=== PATIENT | female | born 1960 | race Caucasian/White ===

== ENCOUNTER 2025-07-05 00:21 | Inpatient (IN) | payer SELFPAY ==
[2025-07-05] VITALS (32 sets, daily range): BP systolic 113–174; BP diastolic 62–104; PULSE 93–110; TEMP 36.4–37.2; O2SAT 83–96; BMI 33.1; BMI 33.6
--- NOTE | 2025-07-05 00:31 | PC.NURSE ---
Pulse Ox. 87-88% on room air. Oxygen applied at 3 LPM/NC and pulse ox. up to 93%.
--- NOTE | 2025-07-05 00:36 | ECG_ITS ---
The [facility] Test Date: 2025-07-05 Pat Name: ALPHONSE TESFAYE Department: Room: - Gender: Female Web Project Manager: : 1960 Requested By: [id number] Order Number: [id number] Reading MD: RICHIE ELAINE M.D. Measurements Intervals [place] Rate: 101 P: 77 TX: 158 QRS: 88 QRSD: 88 T: 72 QT: 360 QTc: 418 Interpretive Statements 1120 Sinus tachycardia 2420 RSR (QR) in lead V1/V2, consistent with right ventricular conduction delay 0102 ARTIFACT PRESENT 9140 abnormal rhythm ECG Compared to ECG 09/29/2021 08:15:31 Right-axis deviation no longer present Electronically Signed On 07-05-2025 15:05:18 EST by RICHIE ELAINE M.D.
--- NOTE | 2025-07-05 01:23 | ED_ITS ---
HPI - SOB/Dyspnea General Chief Complaint: Shortness of Breath/Dyspnea Stated Complaint: sob Time Seen by Provider: 07/05/25 01:11 Source: patient Mode of arrival: walk-in History of Present Illness HPI Narrative: history of COPD. Presents complaining of feeling short of breath. Also has swelling of her lower extremities. Denies chest pain or fever. No nausea. Triage pulse ox 88% RA. ches Related Data Home Medications ?Medication ?Instructions ?Recorded ?Confirmed albuterol sulfate 2.5 mg/3 mL 2.5 mg inhalation Q4H IN N 07/05/25 07/05/25 (0.083 %) solution for nebulization shortness of breat h or wheezing albuterol sulfate 90 mcg/actuation 2 inh inhalation Q4 H PRN shortness 07/05/25 07/05/25 aerosol inhaler of breath or wheezing levothyroxine 200 mcg tablet 200 mcg PO DAILY 07/05/25 07/05/25 Allergies Allergy/AdvReac Type Severity Reaction Status Date / Time Iodinated Contrast Media Allergy Rash Verified 07/05/25 00:33 Review of Systems ROS Status of ROS 10 or more systems reviewed and unremark able except as noted in history and below [facility] Medical History (Updated 07/05/25 @ 05:34 by Roberto Carlos Arredondo MD) Thyroid activity decreased ?E03.9 - Hypothyroidism, unspecified (ICD-10) COPD (chronic obstructive pulmonary disease) ?J44.9 - Chronic obstructive pulmonary disease, unspecified (ICD-10) Social History Little interest or pleasure in doing things: not at all Feeling down, depressed, or hopeless: not at all Exam Constitutional Vital Signs, click to edit/add: Last Vital Signs Temp 98.0 F 07/05/25 00:28 Pulse 93 H 07/05/25 04:40 Resp 24 H 07/05/25 04:10 BP 137/96 H 07/05/25 03:12 Pulse Ox 92 L 07/05/25 04:40 O2 Del Method Nasal Cannula 07/05/25 04:40 O2 Flow Rate 2 07/05/25 04:40 Common normals: no apparent distress, average body habitus, oriented x3, no limitations, healthy appearing, alert and well nourished [facility] Common normals: normocephalic and head/scalp atraumatic Eye Common normals: PERRL and EOMs intact bilaterally Respiratory Common normals: normal respiratory effort, no retractions, no use of accessory muscles and clear to auscultation bilaterally Cardio Common normals: regular rate and regular rhythm GI Common normals: Normal to inspection, nondistended, normoactive bowel sounds present, soft to palpation and non-tender Extremity Other: 1+ tense edema lower ext Neuro Common normals: oriented x3, CN's II-XII intact bilaterally, moves all extremities and no focal motor deficits Psych Appearance: grossly normal Course Vital Signs Vital signs: Vital Signs Temperature 98.0 F 07/05/25 00:28 Pulse Rate 110 H 07/05/25 00:28 Respiratory Rate 24 H 07/05/25 00:28 Blood Pressure 174/84 H 07/05/25 00:28 Pulse Oximetry 88 L 07/05/25 00:28 Oxygen Delivery Method Room Air 07/05/25 00:28 Temperature 98.0 F 07/05/25 00:28 Pulse Rate 93 H 07/05/25 04:40 Respiratory Rate 24 H 07/05/25 04:10 Blood Pressure 137/96 H 07/05/25 03:12 Pulse Oximetry 92 L 07/05/25 04:40 Oxygen Delivery Method Nasal Cannula 07/05/25 04:40 Oxygen Delivery Flow Rate 2 07/05/25 04:40 MDM - SOB/Dyspnea MDM Narrative Medical decision making narrative: history of COPD presents complaining of shortness of breath. No fever. Arrives with RA pulse ox 88%. also complains of swelling of her lower extremities. No chest pain or fever. Exam with 1+ tense edema of her lower extremities. EKG sinus tachycardia. cxray per my review is neg. Serial troponin and BNP neg. Patient treated with solumedrol and duoneb. Her pulse ox 92-93% with 2L NC 02. When she falls asleep she desats to 87% despite wearing 02. labs also demonstra te iatrogenic hyper thyroidism . Discussed with the hospitalist and patient is accepted for admission Lab Data Labs: Lab Results 07/05/25 07/05/25 Range/Units 00:39 04:10 WBC 8.3 (4.0-11.0) 10^3/uL RBC 4.46 (4.20-5.40) 10^6/uL Hgb 12.0 (12.0-16.0) g/dL Hct 37.8 (36.0-48.0) % MCV 84.8 (81.0-99.0) fL MCH 26.9 (26.7-34.0) pg MCHC 31.7 (29.9-35.2) g/dL RDW 15.3 H (11.0-15.0) % Plt Count 295 (150-450) 10^3/uL MPV 10.5 (9.5-13.5) fL Neut % (Auto) 75.2 H (43.0-75.0) % Lymph % (Auto) 15.6 L (20.5-60.0) % [place] % (Auto) 8.3 (1.7-12.0) % Eos % (Auto) 0.5 L (0.9-7.0) % Baso % (Auto) 0.2 (0.2-2.0) % Neut # (Auto) 6.3 (1.4-6.5) 10^3/uL Lymph # (Auto) 1.3 (1.2-3.8) 10^3/uL [place] # (Auto) 0.7 (0.3-0.8) 10^3/uL Eos # (Auto) 0.0 (0.0-0.7) 10^3/uL Baso # (Auto) 0.0 (0.0-0.1) 10^3/uL Abs Immat Gran (auto) 0.02 (0.00-0.03) 10^3/uL Imm/Tot Granulo (auto) 0.2 (0.0-0.5) % Sodium 142 (136-145) mmol/L Potassium 4.2 (3.5-5.1) mmol/L Chloride 105 (98-107) mmol/L Carbon Dioxide 30.7 (21.0-32.0) mmol/L Anion Gap 10.5 BUN 15.0 (7.0-18.0) mg/dL Creatinine 0.63 (0.55-1.02) mg/dL Est GFR ( Amer) >60 (>=60 mL/min/1.73m^2) Est GFR (Non-Af Amer) >60 (>=60 mL/min/1.73m^2) BUN/Creatinine Ratio 23.8 Glucose 116 H (74-106) mg/dL Calcium 9.2 (8.5-10.1) mg/dL Total Bilirubin <0.1 L (0.2-1.0) mg/dL AST 29 (15-37) U/L ALT 50 (14-59) U/L Alkaline Phosphatase 77 (46-116) U/L Troponin I High Sens 21.4 24.1 (4.0-51.3) pg/mL NT-Pro-B Natriuret Pep 235.0 (<=900.0) pg/mL Total Protein 7.1 (6.4-8.2) g/dL Albumin 3.5 (3.4-5.0) g/dL Globulin 3.6 g/dL Albumin/Globulin Ratio 1.0 Free T4 1.84 H (0.76-1.46) ng/dL TSH & Free T4 Interp <0.007 L (0.358-3.740) uIU/mL Discharge Plan Discharge Chief Complaint: Shortness of Breath/Dyspnea Clinical Impression: Acute exacerbation of chronic obstructive pulmonary disease, Hypoxemia, Bilateral edema of lower extremity, Iatrogenic hyperthyroidism Patient Disposition: Admitted as Observation
--- OUTSIDE RECORDS SUMMARY | 2025-07-05 01:24 | XMS_ITS | Clinical Summary ---
Author Organization [facility] Healthcare Address [address] [place] [address] Care Team Providers Care Bath House Attendant Name Role Phone Unavailable Primary Care Provider Unavailabl e Medications MedicationSigDispense QuantityRefillsLast FilledStart DateEnd DateStatus Fexofenadine HCl (MAYNOR ALLERGY PO) AllegraActive amoxicillin (Amoxil) 875 MG tablet Indications:Dental abscess1 po bid until all taken. 20 tablet 3Active albuterol HFA 90 mcg/act inhaler Indications:Simple chronic bronchitis (HCC)Inhale 2 puffs every 4 (four) hours if needed for wheezing INHALE 2 PUFFS BY MOUTH EVERY 4 HOURS ASNEEDED FOR WHEEZING 18 g 5Active levothyroxine (Synthroid, Levoxyl) 200 MCG tablet Indications:Hypothyroidism (acquired)TAKE 1 TABLET BY MOUTH IN THE MORNING ON AN EMPTY STOMACH 120 tablet 5Active albuterol (2.5 MG/3ML) 0.083% nebulizer solution Indications:Simple chronic bronchitis (HCC)USE 1 VIAL IN NEBULIZER EVERY 4 HOURS NEEDED FOR SHORTNESS OF BREATH 450 mL 5Active albuterol (2.5 MG/3ML) 0.083% nebulizer solution Indications:Simple chronic bronchitis (HCC)USE 1 VIAL IN NEBULIZER EVERY 4 HOURS NEEDED FOR SHORTNESS OF BREATH 450 mL Discontinued Encounters DateTypeDepartmentCare EkwiTsbfobhhpou79/19/2025Telephone [facility] [address] [place] [address] Fam Sotomayor DO 06/10/2025Refill [facility] [address] [place] [address] Fam Sotomayor, DO Simple chronic bronchitis (HCC)2025Refill [facility] [address] [place] [id number] Fam Sotomayor, DO Simple chronic bronchitis (HCC)from Last 3 Months Social History Tobacco UseTypesPacks/DayYears UsedDateSmoking Tobacco: Never Assessed CommentsUnknownSex and Gender InformationValueDate RecordedSex Assigned at Not on fileLegal QqlSmhafm40/15/2023 6:44 PM EDTGender IdentityNot on fileSexual OrientationNot on file Last Filed Vital Signs Vital SignReadingTime TakenCommentsBlood Fyxxdkfu516/80009/01/2022 12:00 PM EST Pulse--Temperature--Respiratory Rate--Oxygen Saturation--Inhaled Oxygen Concentration--Fkygye03.6 kg (202 lb)09/01/2022 12:00 PM TWDRazdtq204.9 cm (5' 1 )09/01/2022 12:00 PM ESTBody Mass Index38.17009/01/2022 12:00 PM EST Plan of Treatment Not on file
--- NOTE | 2025-07-05 01:28 | XR_ITS ---
The [address] [address] Patient Name: ALPHONSE TESFAYE MRN: [facility]:[id number] date: 1960 Sex: F Assigned Patient Location: ER Current Patient Location: [place] Accession/Order Number: [id number] Exam Date: 07/05/2025 01:30 Report Date: 07/05/2025 08:20 At the request of: MILADY POLK MD Procedure: XR chest 1V PA CHEST: CLINICAL HISTORY: short of breath COMPARISON: 09/29/2021 Unremarkable cardiomediastinal silhouette. Lungs clear. No effusion or pneumothorax. XR/XR chest 1V IMPRESSION: NEGATIVE ACUTE PLEURAL-PARENCHYMAL DISEASE. Impression dictated by: Brandt Sandoval M.D. 07/05/2025 8:20 AM Dictation Location: [place] [address] Electronically authenticated by: [id number] Y Date: 07/05/2025 08:20
[2025-07-05 01:32] LABS: Hematocrit 37.8 % (36.0-48.0); Hemoglobin 12.0 g/dL (12.0-16.0); Immature Granulocytes Abs Auto 0.02 10^3/uL (0.00-0.03); Immature Granulocytes Pct Auto 0.2 % (0.0-0.5); Lymphocytes Absolute Auto 1.3 10^3/uL (1.2-3.8); Mean Corpuscular HGB Conc 31.7 g/dL (29.9-35.2); Mean Corpuscular Hemoglobin 26.9 pg (26.7-34.0); Mean Corpuscular Volume 84.8 fL (81.0-99.0); Platelet Count 295 10^3/uL (150-450); Red Blood Count 4.46 10^6/uL (4.20-5.40); White Blood Count 8.3 10^3/uL (4.0-11.0)
[2025-07-05] MEDS: METHYLPREDNISOLONE SOD SUCC PF 125 MG/2 ML VIAL IVP (01:37)
[2025-07-05] MEDS: IPRATROPIUM/ALBUTEROL SULFATE 3 ML AMPUL.NEB IH ×5 (01:46→20:32)
[2025-07-05 01:50] LABS: Alanine Aminotransferase 50 U/L (14-59); Albumin Globulin Ratio 1.0; Albumin Level 3.5 g/dL (3.4-5.0); Alkaline Phosphatase 77 U/L (46-116); Anion Gap 10.5; Aspartate Amino Transferase 29 U/L (15-37); Blood Urea Nitrogen 15.0 mg/dL (7.0-18.0); Calcium 9.2 mg/dL (8.5-10.1); Carbon Dioxide 30.7 mmol/L (21.0-32.0); Chloride 105 mmol/L (98-107); Estimated GFR (African America >60 (>=60 mL/min/1.73m^2); Estimated GFR (Non-African Ame >60 (>=60 mL/min/1.73m^2); Globulin 3.6 g/dL; Glucose 116 mg/dL (74-106); NT Pro B Type Natriuretic Pept 235.0 pg/mL (<=900.0); Potassium 4.2 mmol/L (3.5-5.1); Sodium 142 mmol/L (136-145); Total Protein 7.1 g/dL (6.4-8.2)
[2025-07-05 03:10] LABS: TSH W/ REFLEX FT4 <0.007 uIU/mL (0.358-3.740)
[2025-07-05 08:12] LABS: Magnesium 2.2 mg/dL (1.8-2.4)
[2025-07-05] MEDS: ENOXAPARIN SODIUM 40 MG/0.4 ML SYRINGE SUBQ (08:29)
[2025-07-05] MEDS: AMLODIPINE BESYLATE 5 MG TABLET PO (08:29)
[2025-07-05] MEDS: LEVOTHYROXINE SODIUM 100 MCG TABLET 200 MCG PO (10:18)
--- NOTE | 2025-07-05 10:19 | PM.HP ---
HPI H&P: HPI History of Present Illness Chief complaint: sob, EXACERBATION, COPD Narrative: Mrs. Garza is a 65-year-old female with a known diagnosis of COPD. She came in with a few days history of cough, wheezing and congestion. Moist cough, yellowish. No chest pain or palpitation. No fever or chills. Lower extremity swelling. Patient continues to smoke. She is down to 5 cigarettes a day. She is not on oxygen at home. Patient stated that she has oximetry at home. Saturation was dropping down to 88%. In the emergency room her oxygen saturation was 88% on presentation. Opioid HPI Opioid Management Most Recent Pain and Opioid Data: Last Pain Assessment Today, 09:51 Last ORT Total Score 1 Today, 06:55 Last ORT Risk Category Low Risk Today, 06:55 Review of Systems ROS Status of ROS 10 or more systems reviewed and unremarkable except as noted in history and below [facility] Medical History (Updated 07/05/25 @ 10:25 by Moses Rivera MD) Hx of thyroid cancer ?Z85.850 - Personal history of malignant neoplasm of thyroid (ICD-10) History of COPD ?Z87.09 - Personal history of other diseases of the respiratory system (ICD-10) Thyroid activity decreased ?E03.9 - Hypothyroidism, unspecified (ICD-10) COPD (chronic obstructive pulmonary disease) ?J44.9 - Chronic obstructive pulmonary disease, unspecified (ICD-10) Surgical History (Updated 07/05/25 @ 07:27 by Deepti Belle RN) Hx of section ?Z98.891 - History of uterine scar from previous surgery (ICD-10) Hx of thyroidectomy ?Z98.890 - Other specified postprocedural states (ICD-10) ?Z90.89 - Acquired absence of other organs (ICD-10) Social History Highest level of school completed/degree received: high school graduate Little interest or pleasure in doing things: not at all Feeling down, depressed, or hopeless: not at all Gender Identity: female Meds Home Medications and Allergies Home Medications ?Medication ?Instructions ?Recorded ?Confirmed ?Type albuterol sulfate 2.5 mg/3 mL 2.5 mg inhalation Q4H PRN 07/05/25 07/05/25 History (0.083 %) solution for nebulization shortness of breath or wheezing albuterol sulfate 90 mcg/actuation 2 inh inhalation Q4H PRN shortness 07/05/25 07/05/25 History aerosol inhaler of breath or wheezing levothyroxine 200 mcg tablet 200 mcg PO DAILY 07/05/25 07/05/25 History Allergies Allergy/AdvReac Type Severity Reaction Status Date / Time Iodinated Contrast Media Allergy Rash Verified 07/05/25 00:33 Exam Narrative Exam Narrative: [pt is awake and alert. oriented to place, time and person, mildly tachypneic. Respiratory is about 24 using accessory muscles HEENT: [place] conjunctiva and NL buccal mucosa Neck: Supple, no tenderness Endocrine: No Thyromegaly. Vascular: No JVD or carotid bruit. Lymphatic: No cervical lymphadenopathy. Chest: Bilateral wheezing or rhonchi. Heart RRR, no extra sound or murmur. Abd: Soft, no tenderness, no rebound and no rigidity. Increase abd girth therefore clinically I could not exclude the possibility of intra abd mass or organomegaly. LE: No cyanosis or clubbing, no varices. +1 pitting edema in both legs Neuro: A A O. Nl speech, comprehension and attention. Nl and symetrical motor and tone examination through out. []] Constitutional Vital Signs, click to edit/add: Last Vital Signs Temp 99 F 07/05/25 08:00 Pulse 105 H 07/05/25 09:49 Resp 20 07/05/25 09:49 BP 137/85 07/05/25 08:00 Pulse Ox 91 L 07/05/25 09:49 O2 Del Method Nasal Cannula 07/05/25 09:49 O2 Flow Rate 2 07/05/25 09:49 Results Labs Labs: Short CBC 07/05/25 Range/Units 00:39 WBC 8.3 (4.0-11.0) 10^3/uL Hgb 12.0 (12.0-16.0) g/dL Hct 37.8 (36.0-48.0) % Plt Count 295 (150-450) 10^3/uL BMP 07/05/25 00:39 Sodium 142 Potassium 4.2 Chloride 105 Carbon Dioxide 30.7 BUN 15.0 Creatinine 0.63 Glucose 116 H Calcium 9.2 Liver Function 07/05/25 Range/Units 00:39 Total Bilirubin <0.1 L (0.2-1.0) mg/dL AST 29 (15-37) U/L ALT 50 (14-59) U/L Alkaline Phosphatase 77 (46-116) U/L Albumin 3.5 (3.4-5.0) g/dL Assessment and Plan Assessment and Plan (1) Acute hypoxic respiratory failure: (2) Acute exacerbation of chronic obstructive pulmonary disease: Plan Acute hypoxic respiratory failure manifested by tachypnea, respiratory rate 24, using accessory muscles and saturation at 88%. Likely secondary to Acute COPD exacerbation Acute bronchitis I had started patient on albuterol, Atrovent, Solu-Medrol and Zithromax. Follow-up clinically Recommend follow-up with pulmonary. She may need to have the PFTs to determine the significance of her COPD. Stop smoking. Lung cancer screening. I would recommend yearly low-dose radiation CAT scan of the chest to screen for lung cancer to be arranged by PCP and/or timber appraiser. Tobacco addiction for 40 years. She is down to 5 cigarettes a day. Counseling and education NicoDerm patch. Lower extremities edema, unknown etiology. BNP is not significantly elevated. I suspect that the patient could have pulm hypertension, right-sided heart failure causing lower extremity edema. I start patient on diuretics Requested echocardiogram Requested venous study rule out DVT. Hypothyroidism post thyroidectomy for thyroid cancer Continue home Synthroid Continue to keep TSH suppressed DVT prophylaxis Lovenox subcu Chronic, subacute medical conditions not listed above, abnormal labs and imaging, incidental findings seen on labs and or imaging. These would need to be addressed. Could be addressed later on or in the outpatient setting by PCP collaboration with other needed outpatient providers when time and condition are appropriate.
[2025-07-05] MEDS: FUROSEMIDE 20 MG/2 ML VIAL IVP ×3 (11:16→21:33)
[2025-07-05] MEDS: AZITHROMYCIN 500 MG in 0.9 % SODIUM CHLORIDE 250 ML 250 MG IV (11:16)
[2025-07-05 11:51] LABS: SARS-CoV-2 Ag NEGATIVE (NEGATIVE)
[2025-07-05] MEDS: SODIUM CHLORIDE 0.65% OCEAN NASAL SPRAY 2 SPRAY NS (16:45)
[2025-07-05] MEDS: ACETAMINOPHEN 325 MG TABLET 650 MG PO (16:45)
[2025-07-05] MEDS: POTASSIUM CHLORIDE 10 MEQ ER TABLET 30 MEQ PO (16:45)
[2025-07-05] MEDS: METHYLPREDNISOLONE SOD SUCC PF 40 MG/ML VIAL IVP (19:45)
[2025-07-05] MEDS: ALPRAZOLAM 0.5 MG TABLET PO (20:31)
--- NOTE | 2025-07-05 20:35 | PC.NURSE ---
2009 patient called out to say she wasn't feeling good. Nurse down to room. Patient states It's the start of how I felt earlier. . Patient very sob breath at this time. Spo2 85% on 3L oxygen per nasal cannula. Oxygen turned up to 4L. Respiratory therapist called to do breathing treatment. Spo2 up to 91%. 2124 Patient receiving a breathing treatment at this time. Xanax po given at this time for anxiety. 2142 Sp02 95% on 4l/nc. Oxygen turned back down to 3L/nc. Patient feels better after breathing treatment.
[2025-07-06] VITALS (28 sets, daily range): BP systolic 107–146; BP diastolic 60–83; PULSE 77–102; TEMP 36.7–37.2; O2SAT 85–96
[2025-07-06] MEDS: ALBUTEROL SULFATE 2.5 MG/3 ML VIAL NEB IH ×2 (03:40→12:57)
[2025-07-06] MEDS: LEVOTHYROXINE SODIUM 100 MCG TABLET 200 MCG PO (05:49)
[2025-07-06 06:54] LABS: Hematocrit 34.1 % (36.0-48.0); Hemoglobin 11.0 g/dL (12.0-16.0); Immature Granulocytes Abs Auto 0.02 10^3/uL (0.00-0.03); Immature Granulocytes Pct Auto 0.3 % (0.0-0.5); Lymphocytes Absolute Auto 1.5 10^3/uL (1.2-3.8); Mean Corpuscular HGB Conc 32.3 g/dL (29.9-35.2); Mean Corpuscular Hemoglobin 26.9 pg (26.7-34.0); Mean Corpuscular Volume 83.4 fL (81.0-99.0); Platelet Count 324 10^3/uL (150-450); Red Blood Count 4.09 10^6/uL (4.20-5.40); White Blood Count 7.8 10^3/uL (4.0-11.0)
[2025-07-06 07:15] LABS: Alanine Aminotransferase 41 U/L (14-59); Albumin Globulin Ratio 0.9; Albumin Level 3.0 g/dL (3.4-5.0); Alkaline Phosphatase 62 U/L (46-116); Anion Gap 10.2; Aspartate Amino Transferase 23 U/L (15-37); Blood Urea Nitrogen 15.0 mg/dL (7.0-18.0); Calcium 8.7 mg/dL (8.5-10.1); Carbon Dioxide 31.7 mmol/L (21.0-32.0); Chloride 104 mmol/L (98-107); Estimated GFR (African America >60 (>=60 mL/min/1.73m^2); Estimated GFR (Non-African Ame >60 (>=60 mL/min/1.73m^2); Globulin 3.2 g/dL; Glucose 115 mg/dL (74-106); Potassium 3.9 mmol/L (3.5-5.1); Sodium 142 mmol/L (136-145); Total Protein 6.2 g/dL (6.4-8.2)
[2025-07-06] MEDS: ENOXAPARIN SODIUM 40 MG/0.4 ML SYRINGE SUBQ (08:35)
[2025-07-06] MEDS: METHYLPREDNISOLONE SOD SUCC PF 40 MG/ML VIAL IVP ×3 (08:35→21:35)
[2025-07-06] MEDS: SODIUM CHLORIDE 0.65% OCEAN NASAL SPRAY 2 SPRAY NS (08:36)
[2025-07-06] MEDS: ALPRAZOLAM 0.5 MG TABLET PO ×2 (08:38→21:35)
[2025-07-06] MEDS: IPRATROPIUM/ALBUTEROL SULFATE 3 ML AMPUL.NEB IH ×3 (08:55→20:07)
--- NOTE | 2025-07-06 09:13 | P.PN_ITS ---
Progress Note: Subjective Subjective Interval history: Patient continues to cough, moist and having wheezing. No chest pain or palpitation. No abdominal pain. Reduction of lower extremities edema. Exam Narrative Exam Narrative: [pt is awake and alert. oriented to place, time and person, mildly tachypneic. Respiratory is about 24 using accessory muscles HEENT: [place] conjunctiva and NL buccal mucosa Neck: Supple, no tenderness Endocrine: No Thyromegaly. Vascular: No JVD or carotid bruit. Lymphatic: No cervical lymphadenopathy. Chest: Bilateral wheezing or rhonchi. Heart RRR, no extra sound or murmur. Abd: Soft, no tenderness, no rebound and no rigidity. Increase abd girth therefore clinically I could not exclude the possibility of intra abd mass or organomegaly. LE: No cyanosis or clubbing, no varices. +1 pitting edema in both legs Neuro: A A O. Nl speech, comprehension and attention. Nl and symetrical motor and tone examination through out. []] Constitutional Vital Signs, click to edit/add: Last Vital Signs Temp 98.8 F 07/06/25 08:00 Pulse 90 07/06/25 08:56 Resp 20 07/06/25 08:56 BP 146/83 H 07/06/25 08:00 Pulse Ox 93 L 07/06/25 08:56 O2 Del Method Nasal Cannula 07/06/25 08:56 O2 Flow Rate 4 07/06/25 08:56 Progress Note: Objective Labs Labs: Short CBC 07/06/25 Range/Units 06:38 WBC 7.8 (4.0-11.0) 10^3/uL Hgb 11.0 L (12.0-16.0) g/dL Hct 34.1 L (36.0-48.0) % Plt Count 324 (150-450) 10^3/uL BMP 07/06/25 06:38 Sodium 142 Potassium 3.9 Chloride 104 Carbon Dioxide 31.7 BUN 15.0 Creatinine 0.64 Glucose 115 H Calcium 8.7 Liver Function 07/06/25 Range/Units 06:38 Total Bilirubin 0.2 (0.2-1.0) mg/dL AST 23 (15-37) U/L ALT 41 (14-59) U/L Alkaline Phosphatase 62 (46-116) U/L Albumin 3.0 L (3.4-5.0) g/dL Progress Note: A&P Assessment and Plan (1) Acute hypoxic respiratory failure: (2) Acute exacerbation of chronic obstructive pulmonary disease: Plan Acute hypoxic respiratory failure manifested by tachypnea, respiratory rate 24, using accessory muscles and saturation at 88%. Likely secondary to Acute COPD exacerbation Acute bronchitis Continue patient on albuterol, Atrovent, Solu-Medrol and Zithromax. Follow-up clinically Recommend follow-up with pulmonary. She may need to have the PFTs to determine the significance of her COPD. Stop smoking. Lung cancer screening. I would recommend yearly low-dose radiation CAT scan of the chest to screen for lung cancer to be arranged by PCP and/or cinder dump crane operator. Tobacco addiction for 40 years. She is down to 5 cigarettes a day. Counseling and education NicoDerm patch. Lower extremities edema, unknown etiology. BNP is not significantly elevated. I suspect that the patient could have pulm hypertension, right-sided heart failure causing lower extremity edema. Continue patient on diuretics Requested echocardiogram rule out right-sided heart failure or pulmonary hypertension. Pending Requested venous study rule out DVT. Pending Hypothyroidism post thyroidectomy for thyroid cancer Continue home Synthroid Continue to keep TSH suppressed DVT prophylaxis Lovenox subcu Chronic, subacute medical conditions not listed above, abnormal labs and imaging, incidental findings seen on labs and or imaging. These would need to be addressed. Could be addressed later on or in the outpatient setting by PCP collaboration with other needed outpatient providers when time and condition are appropriate.
[2025-07-06] MEDS: POTASSIUM CHLORIDE 10 MEQ ER TABLET 20 MEQ PO ×2 (10:00→21:35)
[2025-07-06] MEDS: AZITHROMYCIN 500 MG in 0.9 % SODIUM CHLORIDE 250 ML 250 MG IV (10:00)
[2025-07-06] MEDS: FUROSEMIDE 40 MG/4 ML VIAL IVP (10:00)
--- NOTE | 2025-07-06 17:05 | PC.NURSE ---
Pt daughter walks down hallway and into room, disregarding PPE for isolation. Nurse asks daughter to come out of room quickly, as to put on PPE. Daughter loudly argumentative, refusing to don gear. Instructed that she must wear PPE for protection of other patients after leaving her mother's room. Pt stomps back in to hallway, arguing that she didnt have to wear anything when my dad was here. (Pt father was also across hallway as a patient yesterday until transfer, also in isolation for bed bugs.) Daughter does place hair protector on, and applies gown shelter, but not properly, and will not listen to nurse. Refuses foot protectors as well. Daughter very loud and once again argumentative regarding policy.
[2025-07-06] MEDS: ACETAMINOPHEN 325 MG TABLET 650 MG PO (18:32)
[2025-07-07] VITALS (23 sets, daily range): BP systolic 113–166; BP diastolic 65–94; PULSE 79–107; TEMP 36.5–37.1; O2SAT 84–98
[2025-07-07] MEDS: ALBUTEROL SULFATE 2.5 MG/3 ML VIAL NEB IH ×2 (02:22→18:18)
--- NOTE | 2025-07-07 02:39 | PC.NURSE ---
3804 Patient called out I can't breathe . As nurse on her way down to room, Respiratory therapist called to give patient a breathing treatment. Spo2 on patient 91% on oxygen at 3L/nc. Patient visibly sob and wheezy. Breathing treatment given. Patient not as sob.
[2025-07-07] MEDS: LEVOTHYROXINE SODIUM 100 MCG TABLET 200 MCG PO (05:39)
[2025-07-07] MEDS: METHYLPREDNISOLONE SOD SUCC PF 40 MG/ML VIAL IVP ×3 (05:39→21:05)
[2025-07-07] MEDS: TORSEMIDE 20 MG TABLET PO (08:04)
[2025-07-07] MEDS: ALPRAZOLAM 0.5 MG TABLET PO (08:04)
[2025-07-07] MEDS: POTASSIUM CHLORIDE 10 MEQ ER TABLET 20 MEQ PO (08:04)
[2025-07-07] MEDS: ENOXAPARIN SODIUM 40 MG/0.4 ML SYRINGE SUBQ (08:04)
[2025-07-07] MEDS: IPRATROPIUM/ALBUTEROL SULFATE 3 ML AMPUL.NEB IH ×3 (08:04→21:19)
--- NOTE | 2025-07-07 09:30 | CM.NOTE ---
Rounds made with Dr. Webb, discussed plan of care with pt. Pt is inpatient status, no discharge today. Pt continues to require oxygen. Continues treatment as ordered.
--- NOTE | 2025-07-07 09:48 | CA_ITS ---
Patient Name: ALPHONSE TESFAYE MR#: [id number] : 1960 Exam Date: 07/07/2025 Ordering Doctor: GUERITA MÁRQUEZ ECHOCARDIOGRAM REPORT PROCEDURE: CA ECHO DOPPLER COMPLETE INDICATIONS: ruling out chf exacerbation COMPARISON: None. DESCRIPTION: COMPLETE ECHOCARDIOGRAM Real-time transthoracic echocardiography with 2D, M-mode, spectral and color flow Doppler performed. QUALITY: Technical quality was good. LEFT VENTRICLE: Normal chamber size. Normal left ventricular wall thickness. Global left ventricular systolic function is normal. No wall motion abnormalities. Calculated left ventricular ejection fraction is 66%. LV EF: Normal left ventricular ejection fraction, (>55%). DIASTOLIC: Normal diastolic function. ATRIAL SEPTUM: Visually appears intact LEFT ATRIUM: Normal chamber size. RIGHT ATRIUM: Normal chamber size. RIGHT VENTRICLE: Normal chamber size. Normal right ventricular systolic function. TRICUSPID VALVE: Normal mobility and thickness. No stenosis with trivial regurgitation. Mild to moderate pulmonary hypertension.The RVSP measures 45mmHg. MITRAL VALVE: Normal mobility and thickness. No evidence of mitral valve stenosis. Mild mitral annular calcification. Trivial mitral regurgitation. AORTIC VALVE: Normal trileaflet appearance. Mildly calcified aortic valve. Mildly diminished mobility. Doppler velocity suggest mild aortic valve stenosis. DVI 0.6, Vmax 2.1m/s Peak/mean gradients 17/8mmHg, IESHA 1.8cm2.Trivial aortic regurgitation. AORTIC ROOT: Normal diameter and appearance. The aortic root measures 3.1cm PULMONIC VALVE: Normal thickness and mobility. No stenosis. No regurgitation. PERICARDIUM: No evidence of pericardial effusion. IVC: The IVC is normal in size measuring 1.9cm with less than 50% collapse consistent with RAP 8 mmHg. PLEURA: CONCLUSION: Normal left ventricle size and wall thickness. Normal left ventricle systolic function without wall motion abnormalities, ejection fraction 66% Normal left ventricle diastolic function Normal right ventricle size and systolic function Mild to moderate pulmonary hypertension, RVSP 45 mmHg Mild aortic stenosis, mean pressure gradient 8 mmHg, aortic valve area 1.8 cm? Trivial aortic insufficiency Adult Echocardiography Procedure Report Left Ventricle LVEDD (3.7 - 5.6 cm): 5.45 cm LVESD (2.2 - 4.0 cm): 3.16 cm LVIVS thickness (0.6 - 1.2 cm): 0.69 cm LVPW thickness (0.5 - 1.0 cm): 0.72 cm e': 0.12 m/s E - e': 8.45 LVOT Max Gradient: 5.88 mm[Hg], 6.23 mm[Hg] LVOT Area (cm2): 1.23 m/s Peak Velocity (LVOT): 1.21 m/s, 1.25 m/s Mean Velocity (LVOT): 0.77 m/s LVOT Diameter 1.91 cm Left Ventricular Ejection Fraction: 65.84 % Left Atrium LA Volume Index (2D A2C): 27.71 ml/m2 Left Atrium Systolic Dimension: 3.03 cm Mitral Valve MV E to A Ratio: 0.88 Mitral Valve A-Wave Peak Velocity: 1.18 m/s Mitral Valve E-Wave Peak Velocity: 1.04 m/s Right Ventricle RV Internal Diastolic Dimension: 3.85 cm Aorta AO Root Diam: 3.08 cm Ascending Ao Diam: 2.99 cm Aortic Valve AoV Area (Peak Álvaro): 1.70 cm2, 1.68 cm2, 1.73 cm2 AoV Area (VTI): 1.67 cm2, 1.56 cm2, 1.78 cm2 Peak Velocity(Antegrade Flow): 2.06 m/s, 2.06 m/s Peak Gradient(Antegrade Flow): 16.93 mm[Hg], 16.93 mm[Hg] Mean Velocity(Antegrade Flow): 1.32 m/s, 1.37 m/s Mean Gradient(Antegrade Flow): 8.17 mm[Hg], 8.68 mm[Hg] Velocity Time Integral: 37.03 cm, 37.68 cm Tricuspid Valve Peak Velocity (Regurgitant Flow): 1.71 m/s, 3.05 m/s, 2.62 m/s Pulmonic Valve Peak Velocity: 1.29 m/s Peak Gradient: 6.42 mm[Hg], 6.86 mm[Hg] Right Atrium Right Atrium Systolic Pressure: 45.24 ml, 45.24 ml Dictated by: Barrie Morse MD on 07/07/2025 at 16:43 Approved by: Barrie Morse MD on 07/07/2025 at 16:51
[2025-07-07] MEDS: PANTOPRAZOLE SODIUM 40 MG VIAL IV (10:26)
[2025-07-07] MEDS: AZITHROMYCIN 500 MG in 0.9 % SODIUM CHLORIDE 250 ML 250 MG IV (10:27)
[2025-07-07] MEDS: 0.9 % SODIUM CHLORIDE 250 ML 10 ML IV (10:27)
--- NOTE | 2025-07-07 11:09 | PM.IMPN1 ---
Progress Note: A&P Assessment and Plan (1) Acute hypoxic respiratory failure: (2) Acute exacerbation of chronic obstructive pulmonary disease: Plan (1) Acute hypoxic respiratory failure: (2) Acute exacerbation of chronic obstructive pulmonary disease: Plan Acute hypoxic respiratory failure manifested by tachypnea, respiratory rate 24, using accessory muscles and saturation at 88%. Likely secondary to Acute COPD exacerbation Acute bronchitis Continue patient on albuterol, Atrovent, Solu-Medrol and Zithromax. Follow-up clinically Recommend follow-up with pulmonary. She may need to have the PFTs to determine the significance of her COPD. Stop smoking. Lung cancer screening. I would recommend yearly low-dose radiation CAT scan of the chest to screen for lung cancer to be arranged by PCP and/or control clerk subassembly. Tobacco addiction for 40 years. She is down to 5 cigarettes a day. Counseling and education NicoDerm patch. Lower extremities edema, unknown etiology. BNP is not significantly elevated. I suspect that the patient could have pulm hypertension, right-sided heart failure causing lower extremity edema. Continue patient on diuretics Requested echocardiogram rule out right-sided heart failure or pulmonary hypertension. Pending Requested venous study rule out DVT. Pending Hypothyroidism post thyroidectomy for thyroid cancer Continue home Synthroid Continue to keep TSH suppressed DVT prophylaxis Lovenox subcu 07/07/2025 patient's echo is pending. Will continue patient on IV azithromycin 500 mg every 24 hours. Patient did receive 1 dose of Lasix 40 g IV once yesterday. Will hold off on that as patient does not appear to be fluid overloaded on my exam. She continues to be on DuoNebs, methylprednisolone 40 mg IV every 8 hours. We will continue to monitor her respiratory status today and will decide based on the echo results as well. Internal Medicine - PN: Subj Subjective Interval history: The patient states that she feels better than yesterday however this morning she woke up with difficulty breathing as well. She still complains of congestion and wheezing. No cough today. No nausea no vomiting no fever no chills. Exam Narrative Exam Narrative: [pt is awake and alert. oriented to place, time and person, ill-appearing in mild respiratory distress HEENT: [place] conjunctiva and NL buccal mucosa Neck: Supple, no tenderness, no JVD, no lymphadenopathy, no thyromegaly Endocrine: No Thyromegaly. Vascular: No JVD or carotid bruit. Lymphatic: No cervical lymphadenopathy. Chest: Bilateral wheezing or rhonchi, decreased bilateral air entry. She is not able to speak in full sense however mild respiratory distress. She is not tachypneic but does have some increased work of breathing. Not using unit trust manager muscles. Not using abdominal muscles for breathing. Saturating 90% on 2 L nasal cannula Heart RRR, no extra sound or murmur. Abd: Soft, no tenderness, no rebound and no rigidity. Increase abd girth therefore clinically I could not exclude the possibility of intra abd mass or organomegaly. LE: No cyanosis or clubbing, no varices, +1 non-pitting edema in both legs Neuro: A A O. Nl speech, comprehension and attention. Nl and symetrical motor and tone examination through out. Constitutional Vital Signs, click to edit/add: Last Vital Signs Temp 98.1 F 07/07/25 07:52 Pulse 100 H 07/07/25 10:00 Resp 22 H 07/07/25 07:52 BP 166/94 H 07/07/25 07:52 Pulse Ox 90 L 07/07/25 07:52 O2 Del Method Nasal Cannula 07/07/25 07:52 O2 Flow Rate 2 07/07/25 07:52
[2025-07-07 11:34] LABS: Hematocrit 37.8 % (36.0-48.0); Hemoglobin 12.1 g/dL (12.0-16.0); Immature Granulocytes Abs Auto 0.03 10^3/uL (0.00-0.03); Immature Granulocytes Pct Auto 0.4 % (0.0-0.5); Lymphocytes Absolute Auto 0.6 10^3/uL (1.2-3.8); Mean Corpuscular HGB Conc 32.0 g/dL (29.9-35.2); Mean Corpuscular Hemoglobin 27.3 pg (26.7-34.0); Mean Corpuscular Volume 85.1 fL (81.0-99.0); Platelet Count 365 10^3/uL (150-450); Red Blood Count 4.44 10^6/uL (4.20-5.40); White Blood Count 8.4 10^3/uL (4.0-11.0)
[2025-07-07 11:59] LABS: Alanine Aminotransferase 47 U/L (14-59); Albumin Globulin Ratio 0.9; Albumin Level 3.2 g/dL (3.4-5.0); Alkaline Phosphatase 68 U/L (46-116); Anion Gap 12.0; Aspartate Amino Transferase 20 U/L (15-37); Blood Urea Nitrogen 17.0 mg/dL (7.0-18.0); Calcium 8.5 mg/dL (8.5-10.1); Carbon Dioxide 32.0 mmol/L (21.0-32.0); Chloride 103 mmol/L (98-107); Estimated GFR (African America >60 (>=60 mL/min/1.73m^2); Estimated GFR (Non-African Ame >60 (>=60 mL/min/1.73m^2); Globulin 3.6 g/dL; Glucose 195 mg/dL (74-106); Potassium 4.0 mmol/L (3.5-5.1); Sodium 143 mmol/L (136-145); Total Protein 6.8 g/dL (6.4-8.2)
--- NOTE | 2025-07-07 12:18 | CT_ITS ---
[address] [address] Patient Name: ALPHONSE TESFAYE MRN: [id number] date: 1960 Sex: F Assigned Patient Location: Current Patient Location: Accession/Order Number: [id number] Exam Date: 07/07/2025 12:54 Report Date: 07/07/2025 13:42 At the request of: GUERITA MÁRQUEZ MD Procedure: CT chest wo con CT chest wo con 07/07/2025 12:59 PM SIGN AND SYMPTOMS: ^hypoxia TECHNIQUE: Multidetector CT axial slices of the chest were obtained without IV contrast. Multiplanar reformats were performed and viewed on a separate workstation and reviewed to further define anatomy and possible pathology. CT was performed with one or more of the following dose reduction techniques: Automated exposure control, adjustment of the mA and/or kV according to patient size, or use of iterative reconstruction technique. COMPARISON: 07/05/2025. FINDINGS: Lower neck: Thyroid gland within normal limits, no supraclavicle adenopathy. Vessels: Atherosclerotic changes are noted in the thoracic aorta. Mediastinum and Amanda: Within normal limits. Heart: Normal size. No pericardial effusion. Airways: Within normal limits Lungs: There is pleural-based scarring in the right lung base. Emphysematous changes are present. Pleura: Within normal limits. Chest Wall: Within normal limits. Upper Abdomen: There are uncomplicated colonic diverticula. Bones: Degenerative changes are noted in the thoracic spine. There is a fracture involving the lateral aspect of the right seventh rib. CT/CT chest wo con IMPRESSION: There is a fracture involving the lateral aspect of the right seventh rib. There is pleural-based scarring in the right lung base. Emphysematous changes are present. Impression dictated by: Philip Trujillo M.D. 07/07/2025 1:42 PM Dictation Location: [place] [address] Electronically authenticated by: [id number] Y Date: 07/07/2025 13:42
--- NOTE | 2025-07-07 13:14 | PC.NURSE ---
Dr. Webb notified of pts d dimer
--- NOTE | 2025-07-07 13:14 | SWNOTE1 ---
SW met with pt to discuss dc needs. Pt lives at home with her , but her is at [facility]. Pt does not use any DME at home. She does not wear home oxygen, but is on oxygen now at hospital. Pt was sitting in bed during conversation. Pt was having a hard time breathing during conversation. She voiced she has been, but can't have her breathing treatment yet. SW let her know that SW was consulted for housing/detention, bed bugs. SW asked if her and family looked in to getting the house cleaned and bombed for bed bugs? Pt stated her daughter is working on it and she put down some powder that is supposed to help. SW expressed that it may take a few times of doing this treatment to get them all gone. She voiced understanding. SW asked if there was any other issues with her home? She stated no, no further concerns at this time. Pt denied any discharge needs. Potential for home oxygen. SW did ask if she had insurance. Pt stated no. She stated she did not work much. She stated her wanted her home and he did not want her to work. Pt did notify the ED of no insurance and she did fill out paperwork in the ED. Pt stated her daughter wanted her to ask about disability. She stated her daughter was told that she can apply for disability through the hospital. JAZIEL was not sure of this, but will find out. JAZIEL went online and printed the website that pt will need to go to and complete the application for SSI. JAZIEL provided to pt.
[2025-07-07] MEDS: ACETAMINOPHEN 325 MG TABLET 650 MG PO (21:05)
[2025-07-07] MEDS: BUDESONIDE 0.5 MG/2 ML AMPULE NEB IH (21:19)
[2025-07-08] VITALS (19 sets, daily range): BP systolic 118–143; BP diastolic 72–82; PULSE 84–120; TEMP 36.4–37.1; O2SAT 90–94
[2025-07-08] MEDS: ALBUTEROL SULFATE 2.5 MG/3 ML VIAL NEB IH (05:44)
[2025-07-08 05:45] LABS: Hematocrit 36.6 % (36.0-48.0); Hemoglobin 11.7 g/dL (12.0-16.0); Immature Granulocytes Abs Auto 0.02 10^3/uL (0.00-0.03); Immature Granulocytes Pct Auto 0.2 % (0.0-0.5); Lymphocytes Absolute Auto 1.1 10^3/uL (1.2-3.8); Mean Corpuscular HGB Conc 32.0 g/dL (29.9-35.2); Mean Corpuscular Hemoglobin 27.0 pg (26.7-34.0); Mean Corpuscular Volume 84.3 fL (81.0-99.0); Platelet Count 350 10^3/uL (150-450); Red Blood Count 4.34 10^6/uL (4.20-5.40); White Blood Count 9.1 10^3/uL (4.0-11.0)
[2025-07-08] MEDS: LEVOTHYROXINE SODIUM 100 MCG TABLET 200 MCG PO (05:50)
[2025-07-08] MEDS: METHYLPREDNISOLONE SOD SUCC PF 40 MG/ML VIAL IVP ×3 (05:50→21:00)
[2025-07-08 06:08] LABS: Alanine Aminotransferase 41 U/L (14-59); Albumin Globulin Ratio 1.0; Albumin Level 3.3 g/dL (3.4-5.0); Alkaline Phosphatase 63 U/L (46-116); Anion Gap 7.5; Aspartate Amino Transferase 14 U/L (15-37); Blood Urea Nitrogen 17.0 mg/dL (7.0-18.0); Calcium 8.8 mg/dL (8.5-10.1); Carbon Dioxide 33.5 mmol/L (21.0-32.0); Chloride 103 mmol/L (98-107); Estimated GFR (African America >60 (>=60 mL/min/1.73m^2); Estimated GFR (Non-African Ame >60 (>=60 mL/min/1.73m^2); Globulin 3.2 g/dL; Glucose 127 mg/dL (74-106); Magnesium 2.1 mg/dL (1.8-2.4); Potassium 4.0 mmol/L (3.5-5.1); Sodium 140 mmol/L (136-145); Total Protein 6.5 g/dL (6.4-8.2)
[2025-07-08] MEDS: IPRATROPIUM/ALBUTEROL SULFATE 3 ML AMPUL.NEB IH ×3 (08:21→20:56)
[2025-07-08] MEDS: BUDESONIDE 0.5 MG/2 ML AMPULE NEB IH ×2 (08:21→20:56)
--- NOTE | 2025-07-08 09:05 | CM.NOTE ---
Rounds made with Dr. Webb, discussed with pt plan of care. No discharge today, continue treatment as ordered. Pt will also have EKG completed, pt had short SVT noted by case monitor. Order entered by ESTEBAN.
--- NOTE | 2025-07-08 09:09 | ECG_ITS ---
[facility] Test Date: 2025-07-08 Pat Name: ALPHONSE TESFAYE Department: Room: 2211 Gender: Female Avionics Safety Inspector: : 1960 Requested By: [id number] Order Number: [id number] Reading MD: RICHIE ELAINE M.D. Measurements Intervals [place] Rate: 103 P: 70 KS: 202 QRS: 37 QRSD: 94 T: 55 QT: 326 QTc: 428 Interpretive Statements SINUS TACHYCARDIA LOW QRS VOLTAGE IN PRECORDIAL LEADS [QRS DEFLECTION < 1.0 mV IN CHEST LEADS] ABNORMAL RHYTHM ECG Compared to ECG 07/05/2025 00:36:47 Low QRS voltage now present Electronically Signed On 07-08-2025 20:01:53 EST by RICHIE ELAINE M.D.
[2025-07-08] MEDS: PANTOPRAZOLE SODIUM 40 MG VIAL IV (09:51)
[2025-07-08] MEDS: ALPRAZOLAM 0.5 MG TABLET PO (09:51)
[2025-07-08] MEDS: ENOXAPARIN SODIUM 40 MG/0.4 ML SYRINGE SUBQ (09:51)
[2025-07-08] MEDS: TORSEMIDE 20 MG TABLET PO (09:51)
[2025-07-08] MEDS: POTASSIUM CHLORIDE 10 MEQ ER TABLET 20 MEQ PO (09:51)
--- NOTE | 2025-07-08 09:56 | SWNOTE1 ---
JAZIEL called and spoke to daughter, Lea. Lea was just getting to [facility] to be with her dad. JAZIEL advised that SW left paperwork in pt's room in regards to SSI, Supplemental Security Income. JAZIEL explained that JAZIEL is not sure if she will qualify, but it is a starting point. Lea voiced appreciation. Lea did request that someone call her with a medical update in regards to pt. SW to let CM know.
[2025-07-08] MEDS: AZITHROMYCIN 500 MG in 0.9 % SODIUM CHLORIDE 250 ML 250 MG IV (10:12)
--- NOTE | 2025-07-08 12:04 | P.IMPN_ITS ---
Progress Note: A&P Assessment and Plan (1) Acute hypoxic respiratory failure: (2) Acute exacerbation of chronic obstructive pulmonary disease: Plan (1) Acute hypoxic respiratory failure: (2) Acute exacerbation of chronic obstructive pulmonary disease: Plan (1) Acute hypoxic respiratory failure: (2) Acute exacerbation of chronic obstructive pulmonary disease: Plan Acute hypoxic respiratory failure manifested by tachypnea, respiratory rate 24, using accessory muscles and saturation at 88%. Likely secondary to Acute COPD exacerbation Acute bronchitis Continue patient on albuterol, Atrovent, Solu-Medrol and Zithromax. Follow-up clinically Recommend follow-up with pulmonary. She may need to have the PFTs to determine the significance of her COPD. Stop smoking. Lung cancer screening. I would recommend yearly low-dose radiation CAT scan of the chest to screen for lung cancer to be arranged by PCP and/or shrimp trawler. Tobacco addiction for 40 years. She is down to 5 cigarettes a day. Counseling and education NicoDerm patch. Lower extremities edema, unknown etiology. BNP is not significantly elevated. I suspect that the patient could have pulm hypertension, right-sided heart failure causing lower extremity edema. Continue patient on diuretics Requested echocardiogram rule out right-sided heart failure or pulmonary hypertension. Pending Requested venous study rule out DVT. Pending Hypothyroidism post thyroidectomy for thyroid cancer Continue home Synthroid Continue to keep TSH suppressed DVT prophylaxis Lovenox subcu 07/07/2025 patient's echo is pending. Will continue patient on IV azithromycin 500 mg every 24 hours. Patient did receive 1 dose of Lasix 40 g IV once yesterday. Will hold off on that as patient does not appear to be fluid overloaded on my exam. She continues to be on DuoNebs, methylprednisolone 40 mg IV every 8 hours. We will continue to monitor her respiratory status today and will decide based on the echo results as well. 07/08/2025 patient is slightly improved compared to yesterday in terms of her work of breathing. Patient does have a fracture involving the lateral asp of the right seventh rib on her CT chest without contrast from yesterday. Along with pleural-based scarring in the right lung base. Emphysematous changes were present. Patient refused to do a CT chest PE and my likelihood for PE is low for now. She continues guanfacine and is getting a stent to 5 L so I will take that as improvement. Her work of breathing is slightly better than yesterday. She is able to secure airway clear. She has mild respiratory distress only. I added Pulmicort yesterday so she is on DuoNeb, Pulmicort as well as on methylprednisolone 40 mg IV every 8 hours. She continues to on appropriate DVT and GI prophylaxis well. She continues to be on IV azithromycin as well. Discussed the plan with her in detail. Answered all questions. Added vest therapy as well as will ask respiratory to begin to hypertonic saline nebulizer to help her come up with the secretions as well. Internal Medicine - PN: Subj Subjective Interval history: Patient states that she feels better today. She does not have any cough and states that she cannot bring anything up. No fever no chills. Still on 3 to nasal cannula actually better than yesterday where she was on 5 L Exam Narrative Exam Narrative: pt is awake and alert. oriented to place, time and person, ill-appearing in mild respiratory distress HEENT: [place] conjunctiva and NL buccal mucosa Neck: Supple, no tenderness, no JVD, no lymphadenopathy, no thyromegaly Endocrine: No Thyromegaly. Vascular: No JVD or carotid bruit. Lymphatic: No cervical lymphadenopathy. Chest: Bilateral wheezing or rhonchi, decreased bilateral air entry. She is not able to speak in full sense however mild respiratory distress. She is not tachypneic but does have some increased work of breathing. Not using cab station attendant muscles. Not using abdominal muscles for breathing. Saturating 90% on 2 L nasal cannula Heart RRR, no extra sound or murmur. Abd: Soft, no tenderness, no rebound and no rigidity. Increase abd girth therefore clinically I could not exclude the possibility of intra abd mass or organomegaly. LE: No cyanosis or clubbing, no varices, +1 non-pitting edema in both legs Neuro: A A O. Nl speech, comprehension and attention. Nl and symetrical motor and tone examination through out. Constitutional Vital Signs, click to edit/add: Last Vital Signs Temp 97.6 F 07/08/25 10:13 Pulse 104 H 07/08/25 10:13 Resp 22 H 07/08/25 10:13 BP 118/74 07/08/25 10:13 Pulse Ox 90 L 07/08/25 10:13 O2 Del Method Nasal Cannula 07/08/25 10:13 O2 Flow Rate 3 07/08/25 10:13 Internal Medicine - PN: Obj Da Labs Labs: Laboratory Results - last 24 hr 07/07/25 07/08/25 12:47 05:26 WBC 9.1 RBC 4.34 Hgb 11.7 L Hct 36.6 MCV 84.3 MCH 27.0 MCHC 32.0 RDW 15.0 Plt Count 350 MPV 8.6 L Neut % (Auto) 79.7 H Lymph % (Auto) 11.6 L [place] % (Auto) 8.4 Eos % (Auto) 0.0 L Baso % (Auto) 0.1 L Neut # (Auto) 7.3 H Lymph # (Auto) 1.1 L [place] # (Auto) 0.8 Eos # (Auto) 0.0 Baso # (Auto) 0.0 Abs Immat Gran (auto) 0.02 Imm/Tot Granulo (auto) 0.2 D-Dimer 1.79 H* Sodium 140 Potassium 4.0 Chloride 103 Carbon Dioxide 33.5 H Anion Gap 7.5 BUN 17.0 Creatinine 0.56 Est GFR ( Amer) >60 Est GFR (Non-Af Amer) >60 BUN/Creatinine Ratio 30.4 Glucose 127 H Calcium 8.8 Magnesium 2.1 Total Bilirubin 0.2 AST 14 L ALT 41 Alkaline Phosphatase 63 Total Protein 6.5 Albumin 3.3 L Globulin 3.2 Albumin/Globulin Ratio 1.0
--- NOTE | 2025-07-08 15:21 | SWNOTE1 ---
PT/OT notes reviewed and PT did recommend HH. SW to speak with pt about Home health.
--- NOTE | 2025-07-08 15:31 | SWNOTE1 ---
SW stopped in to speak with pt about recommendation of home health. SW let pt know that at this time it is recommended that pt have some home health services come in at discharge. Pt stated that she has no insurance and there is no way she is paying for those services, she can not afford that. She voiced that her daughter is going to be upset, but there is nothing she can do. SW asked if her daughter would help pay for it. She stated she does not have the money either. Pt then started talking about her frustrations with her daughter and the CT scan with the dye. Pt voiced she does not want the dye as she is worried about a reaction. At this time pt denies any needs. SW to follow as needed.
--- NOTE | 2025-07-08 15:53 | SWNOTE1 ---
Pt may need home oxygen. Pt has no insurance. SW called [facility] and they do not accept self pay. SW called [facility], no answer, left message.
--- NOTE | 2025-07-08 16:04 | SWNOTE1 ---
JAZIEL did receive a call from Lea, pt's daughter. She left a voicemail requesting SW call her back and hoping her mom can stay here until Monday when her other sister is home. SW stopped in pt's room to see if she is alright with SW calling her daughter without her being present. Pt is alright with this as long as she knows what the conversation is about. SW let her know about her daughter hoping she can be here until Monday. SW did advise pt that her discharge is determined by if she is medically stable. Pt voiced understanding. Pt gave permission for SW to call daughter, Lea. SW did let pt know that there is a chance she will need home oxygen and this would be an out of pocket cost. She stated she can't afford it. JAZIEL and pt to discuss further if home 02 is needed.
[2025-07-09] VITALS (21 sets, daily range): BP systolic 125–150; BP diastolic 69–78; PULSE 79–104; TEMP 36.5–36.7; O2SAT 85–94; BMI 30.6
[2025-07-09] MEDS: LEVOTHYROXINE SODIUM 100 MCG TABLET 200 MCG PO (05:31)
[2025-07-09] MEDS: METHYLPREDNISOLONE SOD SUCC PF 40 MG/ML VIAL IVP ×3 (05:31→22:34)
[2025-07-09 05:54] LABS: Hematocrit 36.6 % (36.0-48.0); Hemoglobin 11.7 g/dL (12.0-16.0); Immature Granulocytes Abs Auto 0.03 10^3/uL (0.00-0.03); Immature Granulocytes Pct Auto 0.4 % (0.0-0.5); Lymphocytes Absolute Auto 1.3 10^3/uL (1.2-3.8); Mean Corpuscular HGB Conc 32.0 g/dL (29.9-35.2); Mean Corpuscular Hemoglobin 27.0 pg (26.7-34.0); Mean Corpuscular Volume 84.3 fL (81.0-99.0); Platelet Count 355 10^3/uL (150-450); Red Blood Count 4.34 10^6/uL (4.20-5.40); White Blood Count 8.4 10^3/uL (4.0-11.0)
[2025-07-09 06:12] LABS: Alanine Aminotransferase 40 U/L (14-59); Albumin Globulin Ratio 1.0; Albumin Level 3.2 g/dL (3.4-5.0); Alkaline Phosphatase 60 U/L (46-116); Anion Gap 7.1; Aspartate Amino Transferase 10 U/L (15-37); Blood Urea Nitrogen 21.0 mg/dL (7.0-18.0); Calcium 8.8 mg/dL (8.5-10.1); Carbon Dioxide 33.8 mmol/L (21.0-32.0); Chloride 101 mmol/L (98-107); Estimated GFR (African America >60 (>=60 mL/min/1.73m^2); Estimated GFR (Non-African Ame >60 (>=60 mL/min/1.73m^2); Globulin 3.2 g/dL; Glucose 118 mg/dL (74-106); Magnesium 2.1 mg/dL (1.8-2.4); Potassium 3.9 mmol/L (3.5-5.1); Sodium 138 mmol/L (136-145); Total Protein 6.4 g/dL (6.4-8.2)
[2025-07-09] MEDS: IPRATROPIUM/ALBUTEROL SULFATE 3 ML AMPUL.NEB IH ×3 (07:06→21:43)
[2025-07-09] MEDS: BUDESONIDE 0.5 MG/2 ML AMPULE NEB IH ×2 (07:06→21:43)
[2025-07-09] MEDS: PANTOPRAZOLE SODIUM 40 MG VIAL IV (08:33)
[2025-07-09] MEDS: TORSEMIDE 20 MG TABLET PO (08:33)
[2025-07-09] MEDS: ENOXAPARIN SODIUM 40 MG/0.4 ML SYRINGE SUBQ (08:33)
[2025-07-09] MEDS: POTASSIUM CHLORIDE 10 MEQ ER TABLET 20 MEQ PO (08:33)
--- NOTE | 2025-07-09 08:49 | SWNOTE1 ---
JAZIEL did get permission from pt to call her daughter, Lea. JAZIEL called Lea and let her know that the physician has not rounded yet, but he will determine when she is medically stable for discharge. Lea asked what they are going to do about the oxygen? JAZIEL did explain to Lea that if pt does need home oxygen, it will be an out of pocket cost. JAZIEL will call around today to get pricing for pt and family. SW to keep Lea updated.
--- NOTE | 2025-07-09 09:34 | SWNOTE1 ---
JAZIEL called [facility] and spoke with Zoila. Zoila sent SW to Frank and he did not answer. JAZIEL left message in regards to private pay home oxygen. JAZIEL called [facility] and spoke to Rayne. Rayne provided pricing for home oxygen private pay. It would be $190.64 for concentrator and $58.00 per month for home fill system. Total would be $248.64. This would be the monthly charge. Tubing would be included and any servicing that would be needed. JAZIEL called and spoke to Nora at [email or web address]. Nora is reaching out to Tyra her director to get private pay pricing. She will call JAZIEL back. JAZIEL provided contact.
--- NOTE | 2025-07-09 09:45 | SWNOTE1 ---
SW also called [facility] and they do not take self pay pt's for home oxygen.
--- NOTE | 2025-07-09 10:10 | CM.NOTE ---
Rounds made with Dr. Webb, pt tachypneic this am and c/o difficulty breathing. No discharge today, pt continues to require oxygen. Pt will have walk test prior to discharge.
--- NOTE | 2025-07-09 10:15 | SWNOTE1 ---
SW received a call back from [facility] [email or web address] and the cost for home oxygen self pay is $150.00 per month, plus $15 per tank. Each tank refill is $15.00. They would need a card on file, which is true for all the DME companies.
[2025-07-09] MEDS: AZITHROMYCIN 500 MG in 0.9 % SODIUM CHLORIDE 250 ML 150 MG IV (10:54)
[2025-07-09] MEDS: MAGNESIUM HYDROXIDE 2,400 MG/10 ML ORAL.SUSP 1200 MG PO (10:54)
--- NOTE | 2025-07-09 11:10 | SWNOTE1 ---
JAZIEL received a call back from Frank at [facility] and he provided pricing for private pay oxygen. JAZIEL provided liter flow at this time and that pt would need continuous oxygen flow. Pricing would be $150 per month for the concentrator. Then it would be $25 for each tank that is needed or refilled. No charge for tubing.
--- NOTE | 2025-07-09 11:59 | P.IMPN_ITS ---
Progress Note: A&P Assessment and Plan (1) Acute hypoxic respiratory failure: (2) Acute exacerbation of chronic obstructive pulmonary disease: Plan Acute hypoxic respiratory failure manifested by tachypnea, respiratory rate 24, using accessory muscles and saturation at 88%. Likely secondary to Acute COPD exacerbation Acute bronchitis Continue patient on albuterol, Atrovent, Solu-Medrol and Zithromax. Follow-up clinically Recommend follow-up with pulmonary. She may need to have the PFTs to determine the significance of her COPD. Stop smoking. Lung cancer screening. I would recommend yearly low-dose radiation CAT scan of the chest to screen for lung cancer to be arranged by PCP and/or amortization schedule clerk. Tobacco addiction for 40 years. She is down to 5 cigarettes a day. Counseling and education NicoDerm patch. Lower extremities edema, unknown etiology. BNP is not significantly elevated. I suspect that the patient could have pulm hypertension, right-sided heart failure causing lower extremity edema. Continue patient on diuretics Requested echocardiogram rule out right-sided heart failure or pulmonary hypertension. Pending Requested venous study rule out DVT. Pending Hypothyroidism post thyroidectomy for thyroid cancer Continue home Synthroid Continue to keep TSH suppressed DVT prophylaxis Lovenox subcu 07/07/2025 patient's echo is pending. Will continue patient on IV azithromycin 500 mg every 24 hours. Patient did receive 1 dose of Lasix 40 g IV once yesterday. Will hold off on that as patient does not appear to be fluid overloaded on my exam. She continues to be on DuoNebs, methylprednisolone 40 mg IV every 8 hours. We will continue to monitor her respiratory status today and will decide based on the echo results as well. 07/08/2025 patient is slightly improved compared to yesterday in terms of her work of breathing. Patient does have a fracture involving the lateral asp of the right seventh rib on her CT chest without contrast from yesterday. Along with pleural-based scarring in the right lung base. Emphysematous changes were present. Patient refused to do a CT chest PE and my likelihood for PE is low for now. She continues guanfacine and is getting a stent to 5 L so I will take that as improvement. Her work of breathing is slightly better than yesterday. She is able to secure airway clear. She has mild respiratory distress only. I added Pulmicort yesterday so she is on DuoNeb, Pulmicort as well as on methylprednisolone 40 mg IV every 8 hours. She continues to on appropriate DVT and GI prophylaxis well. She continues to be on IV azithromycin as well. Discussed the plan with her in detail. Answered all questions. Added vest therapy as well as will ask respiratory to begin to hypertonic saline nebulizer to help her come up with the secretions as well 07/09/2025 patient still with creased work of breathing specially when she tried to speak. I will continue her on her DuoNeb, Pulmicort, IV methylprednisone for another day. Also will continue with IV azithromycin for today. I discussed with her the plan. Unfortunately patient will not be covered for her oxygen that she we will definitely need on discharge. I will discuss that with the medical case manager and mental health social worker to help the patient with resources to discharge as safe as possible when the time comes on oxygen to avoid readmissions. Exam Narrative Exam Narrative: pt is awake and alert. oriented to place, time and person, ill-appearing in mild respiratory distress HEENT: [place] conjunctiva and NL buccal mucosa Neck: Supple, no tenderness, no JVD, no lymphadenopathy, no thyromegaly Endocrine: No Thyromegaly. Vascular: No JVD or carotid bruit. Lymphatic: No cervical lymphadenopathy. Chest: Bilateral wheezing or rhonchi, decreased bilateral air entry. She is not able to speak in full sense however mild respiratory distress. She is not tachypneic but does have some increased work of breathing. Not using solar resource assessor muscles. Not using abdominal muscles for breathing. Saturating 90% on 2 L nasal cannula Heart RRR, no extra sound or murmur. Abd: Soft, no tenderness, no rebound and no rigidity. Increase abd girth therefore clinically I could not exclude the possibility of intra abd mass or organomegaly. LE: No cyanosis or clubbing, no varices, +1 non-pitting edema in both legs Neuro: A A O. Nl speech, comprehension and attention. Nl and symetrical motor and tone examination through out. Internal Medicine - PN: Subj Subjective Interval history: Patient states that she feels better today. Still not able to speak in full sentences. However states that he feels better than when she came in. Sats are 90% on 3 to nasal cannula. Exam Constitutional Vital Signs, click to edit/add: Last Vital Signs Temp 98.1 F 07/09/25 08:00 Pulse 91 H 07/09/25 11:49 Resp 22 H 07/09/25 08:00 BP 128/78 07/09/25 08:00 Pulse Ox 90 L 07/09/25 08:00 O2 Del Method Nasal Cannula 07/09/25 08:00 O2 Flow Rate 3 07/09/25 08:00 Internal Medicine - PN: Obj Da Labs Labs: Laboratory Results - last 24 hr 07/09/25 05:27 WBC 8.4 RBC 4.34 Hgb 11.7 L Hct 36.6 MCV 84.3 MCH 27.0 MCHC 32.0 RDW 14.9 Plt Count 355 MPV 8.8 L Neut % (Auto) 74.9 Lymph % (Auto) 16.0 L [place] % (Auto) 8.7 Eos % (Auto) 0.0 L Baso % (Auto) 0.0 L Neut # (Auto) 6.3 Lymph # (Auto) 1.3 [place] # (Auto) 0.7 Eos # (Auto) 0.0 Baso # (Auto) 0.0 Abs Immat Gran (auto) 0.03 Imm/Tot Granulo (auto) 0.4 Sodium 138 Potassium 3.9 Chloride 101 Carbon Dioxide 33.8 H Anion Gap 7.1 BUN 21.0 H Creatinine 0.65 Est GFR ( Amer) >60 Est GFR (Non-Af Amer) >60 BUN/Creatinine Ratio 32.3 Glucose 118 H Calcium 8.8 Magnesium 2.1 Total Bilirubin 0.2 AST 10 L ALT 40 Alkaline Phosphatase 60 Total Protein 6.4 Albumin 3.2 L Globulin 3.2 Albumin/Globulin Ratio 1.0
--- NOTE | 2025-07-09 12:36 | SWNOTE1 ---
SW spoke to pt in regards to home oxygen. SW provided pt with cost for home oxygen since pt does not have insurance. Pt voiced she has $200 left in her account and she just paid her daughter to have her home cleaned for the bed bugs. SW asked if her daughters could assist with paying for the oxygen? She stated no, they are both scrapping for money. SW asked if her and her husbands money were together? She did state it is there money. SW advised the [employer] will coordinate a day that works best for pt for the payment to come out. Pt's voiced she does not want [facility] as they owe them money. Her has home oxygen from them at this time. He has a tank and 2 smaller tanks at home, they are supposed to be paying monthly for the tank. JAZIEL also let pt know that she can't smoke and wear the oxygen. She stated she is aware of all this. SW advised pt the oxygen is very important and SW does understand the financial strain. JAZIEL offered to call pt's daughter, Lea, but pt stated she just spoke with her. Pt voiced she is having a harder time breathing today, pt stated she has to use the restroom. SW to stop by later today or tomorrow to check on patient.
[2025-07-09] MEDS: ALBUTEROL SULFATE 2.5 MG/3 ML VIAL NEB IH (13:10)
[2025-07-09] MEDS: CALCIUM CARBONATE 500 MG (200MG ELEMENTAL) TAB CHEW PO (20:42)
[2025-07-10] VITALS (26 sets, daily range): BP systolic 110–149; BP diastolic 70–89; PULSE 68–100; TEMP 36.5–36.8; O2SAT 90–95
[2025-07-10] MEDS: ALBUTEROL SULFATE 2.5 MG/3 ML VIAL NEB IH (00:54)
[2025-07-10] MEDS: ALPRAZOLAM 0.5 MG TABLET PO ×2 (01:37→23:34)
[2025-07-10] MEDS: METHYLPREDNISOLONE SOD SUCC PF 40 MG/ML VIAL IVP ×3 (05:34→22:24)
[2025-07-10] MEDS: LEVOTHYROXINE SODIUM 100 MCG TABLET 200 MCG PO (05:34)
[2025-07-10 05:36] LABS: Hematocrit 40.0 % (36.0-48.0); Hemoglobin 12.8 g/dL (12.0-16.0); Immature Granulocytes Abs Auto 0.03 10^3/uL (0.00-0.03); Immature Granulocytes Pct Auto 0.4 % (0.0-0.5); Lymphocytes Absolute Auto 0.9 10^3/uL (1.2-3.8); Mean Corpuscular HGB Conc 32.0 g/dL (29.9-35.2); Mean Corpuscular Hemoglobin 26.8 pg (26.7-34.0); Mean Corpuscular Volume 83.9 fL (81.0-99.0); Platelet Count 389 10^3/uL (150-450); Red Blood Count 4.77 10^6/uL (4.20-5.40); White Blood Count 8.6 10^3/uL (4.0-11.0)
[2025-07-10 05:58] LABS: Alanine Aminotransferase 36 U/L (14-59); Albumin Globulin Ratio 1.1; Albumin Level 3.4 g/dL (3.4-5.0); Alkaline Phosphatase 64 U/L (46-116); Anion Gap 7.3; Aspartate Amino Transferase 9 U/L (15-37); Blood Urea Nitrogen 21.0 mg/dL (7.0-18.0); Calcium 8.9 mg/dL (8.5-10.1); Carbon Dioxide 34.9 mmol/L (21.0-32.0); Chloride 99 mmol/L (98-107); Estimated GFR (African America >60 (>=60 mL/min/1.73m^2); Estimated GFR (Non-African Ame >60 (>=60 mL/min/1.73m^2); Globulin 3.2 g/dL; Glucose 143 mg/dL (74-106); Magnesium 2.4 mg/dL (1.8-2.4); Potassium 4.2 mmol/L (3.5-5.1); Sodium 137 mmol/L (136-145); Total Protein 6.6 g/dL (6.4-8.2)
[2025-07-10] MEDS: PANTOPRAZOLE SODIUM 40 MG VIAL IV (08:03)
[2025-07-10] MEDS: ENOXAPARIN SODIUM 40 MG/0.4 ML SYRINGE SUBQ (08:04)
[2025-07-10] MEDS: TORSEMIDE 20 MG TABLET PO (08:04)
[2025-07-10] MEDS: POTASSIUM CHLORIDE 10 MEQ ER TABLET 20 MEQ PO (08:04)
[2025-07-10] MEDS: IPRATROPIUM/ALBUTEROL SULFATE 3 ML AMPUL.NEB IH ×3 (08:15→20:00)
[2025-07-10] MEDS: BUDESONIDE 0.5 MG/2 ML AMPULE NEB IH ×2 (08:15→20:00)
--- NOTE | 2025-07-10 09:40 | CM.NOTE ---
Rounds made with Dr. Webb, discussed plan of care with pt. Pt continues to require oxygen, pt feels as her SOB is increased at night. Pt feels as she may have sleep apnea, Dr. Webb discussed with pt wearing BIPAP at night to see if it helps decrease her work of breathing. Pt in agreement to try BIPAP tonight at HS. No discharge today, continue other treatment as ordered.
--- NOTE | 2025-07-10 11:04 | P.IMPN_ITS ---
Progress Note: A&P Assessment and Plan (1) Acute hypoxic respiratory failure: (2) Acute exacerbation of chronic obstructive pulmonary disease: Plan Acute hypoxic respiratory failure manifested by tachypnea, respiratory rate 24, using accessory muscles and saturation at 88%. Likely secondary to Acute COPD exacerbation Acute bronchitis Continue patient on albuterol, Atrovent, Solu-Medrol and Zithromax. Follow-up clinically Recommend follow-up with pulmonary. She may need to have the PFTs to determine the significance of her COPD. Stop smoking. Lung cancer screening. I would recommend yearly low-dose radiation CAT scan of the chest to screen for lung cancer to be arranged by PCP and/or seed technician. Tobacco addiction for 40 years. She is down to 5 cigarettes a day. Counseling and education NicoDerm patch. Lower extremities edema, unknown etiology. BNP is not significantly elevated. I suspect that the patient could have pulm hypertension, right-sided heart failure causing lower extremity edema. Continue patient on diuretics Requested echocardiogram rule out right-sided heart failure or pulmonary hypertension. Pending Requested venous study rule out DVT. Pending Hypothyroidism post thyroidectomy for thyroid cancer Continue home Synthroid Continue to keep TSH suppressed DVT prophylaxis Lovenox subcu 07/07/2025 patient's echo is pending. Will continue patient on IV azithromycin 500 mg every 24 hours. Patient did receive 1 dose of Lasix 40 g IV once yesterday. Will hold off on that as patient does not appear to be fluid overloaded on my exam. She continues to be on DuoNebs, methylprednisolone 40 mg IV every 8 hours. We will continue to monitor her respiratory status today and will decide based on the echo results as well. 07/08/2025 patient is slightly improved compared to yesterday in terms of her work of breathing. Patient does have a fracture involving the lateral asp of the right seventh rib on her CT chest without contrast from yesterday. Along with pleural-based scarring in the right lung base. Emphysematous changes were present. Patient refused to do a CT chest PE and my likelihood for PE is low for now. She continues guanfacine and is getting a stent to 5 L so I will take that as improvement. Her work of breathing is slightly better than yesterday. She is able to secure airway clear. She has mild respiratory distress only. I added Pulmicort yesterday so she is on DuoNeb, Pulmicort as well as on methylprednisolone 40 mg IV every 8 hours. She continues to on appropriate DVT and GI prophylaxis well. She continues to be on IV azithromycin as well. Discussed the plan with her in detail. Answered all questions. Added vest therapy as well as will ask respiratory to begin to hypertonic saline nebulizer to help her come up with the secretions as well 07/09/2025 patient still with creased work of breathing specially when she tried to speak. I will continue her on her DuoNeb, Pulmicort, IV methylprednisone for another day. Also will continue with IV azithromycin for today. I discussed with her the plan. Unfortunately patient will not be covered for her oxygen that she we will definitely need on discharge. I will discuss that with the piano case and bench assembler and social insurance specialist to help the patient with resources to discharge as safe as possible when the time comes on oxygen to avoid readmissions 07/10/2025 given the patient's symptoms at night I am suspecting sleep apnea, I ordered BiPAP on a setting of 12 IPAP, 5 EPAP, 14 respiratory and 40% FiO2 and will see how the patient does this night. Also consult cardiology for persistent symptoms despite normal echo and other cardiac workup. Patient will need to be and for another 24 hours at least until we optimize her symptoms. Continues to be on IV steroids and IV azithromycin and DuoNeb and Pulmicort. Discussed the plan with her in details. I also added famotidine at night to help with her symptoms if there is any GERD related symptomatology Internal Medicine - PN: Subj Subjective Interval history: Patient states that she feels better today. Patient patient states that she feels better however she is having difficulty breathing overnight. She states that she is waking up at night gasping for air and this is affecting her sleep and also making her very tired during the day. No cough today. She is unseated and is again essentially 94% Exam Narrative Exam Narrative: pt is awake and alert. oriented to place, time and person, ill-appearing in mild respiratory distress HEENT: [place] conjunctiva and NL buccal mucosa Neck: Supple, no tenderness, no JVD, no lymphadenopathy, no thyromegaly Endocrine: No Thyromegaly. Vascular: No JVD or carotid bruit. Lymphatic: No cervical lymphadenopathy. Chest: Bilateral wheezing or rhonchi, decreased bilateral air entry. She is not able to speak in full sense however mild respiratory distress. She is not tachypneic but does have some increased work of breathing. Not using [employer] black belt muscles. Not using abdominal muscles for breathing. Saturating 90% on 2 L nasal cannula Heart RRR, no extra sound or murmur. Abd: Soft, no tenderness, no rebound and no rigidity. Increase abd girth therefore clinically I could not exclude the possibility of intra abd mass or organomegaly. LE: No cyanosis or clubbing, no varices, +1 non-pitting edema in both legs Neuro: A A O. Nl speech, comprehension and attention. Nl and symetrical motor and tone examination through out. Constitutional Vital Signs, click to edit/add: Last Vital Signs Temp 97.9 F 07/10/25 08:00 Pulse 96 H 07/10/25 10:00 Resp 26 H 07/10/25 08:00 BP 144/83 H 07/10/25 08:00 Pulse Ox 94 L 07/10/25 08:21 O2 Del Method Nasal Cannula 07/10/25 08:21 O2 Flow Rate 3 07/10/25 08:21 Internal Medicine - PN: Obj Da Labs Labs: Laboratory Results - last 24 hr 07/10/25 05:09 WBC 8.6 RBC 4.77 Hgb 12.8 Hct 40.0 MCV 83.9 MCH 26.8 MCHC 32.0 RDW 14.9 Plt Count 389 MPV 9.0 L Neut % (Auto) 82.1 H Lymph % (Auto) 11.[address] [place] % (Auto) 6.4 Eos % (Auto) 0.0 L Baso % (Auto) 0.1 L Neut # (Auto) 7.0 H Lymph # (Auto) 0.[address] [place] # (Auto) 0.6 Eos # (Auto) 0.0 Baso # (Auto) 0.0 Abs Immat Gran (auto) 0.03 Imm/Tot Granulo (auto) 0.4 Sodium 137 Potassium 4.2 Chloride 99 Carbon Dioxide 34.9 H Anion Gap 7.3 BUN 21.0 H Creatinine 0.61 Est GFR ( Amer) >60 Est GFR (Non-Af Amer) >60 BUN/Creatinine Ratio 34.4 Glucose 143 H Calcium 8.9 Magnesium 2.4 Total Bilirubin 0.2 AST 9 L ALT 36 Alkaline Phosphatase 64 Total Protein 6.6 Albumin 3.4 Globulin 3.2 Albumin/Globulin Ratio 1.1
[2025-07-10] MEDS: ACETAMINOPHEN 325 MG TABLET 650 MG PO (11:12)
--- NOTE | 2025-07-10 12:53 | P.CACN_ITS ---
History of Present Illness History of Present Illness Consult date: 07/10/25 Requesting physician: Kathy Webb Consult reason: shortness of breath Chief complaint: sob, EXACERBATION, COPD Narrative: Per admit H&P: Mrs. Garza is a 65-year-old female with a known diagnosis of COPD. She came in with a few days history of cough, wheezing and congestion. Moist cough, yellowish. No chest pain or palpitation. No fever or chills. Lower extremity swelling. Patient continues to smoke. She is down to 5 cigarettes a day. She is not on oxygen at home. Patient stated that she has oximetry at home. Saturation was dropping down to 88%. In the emergency room her oxygen saturation was 88% on presentation. The patient has no prior known history of cardiac problems. She denies a history of congestive heart failure . She has had no prior coronary artery disease, myocardial infarction, or significant arrhythmias. She is a current smoker. She states that her breathing has slowly improved since admission. Her lower extremities were significantly swollen on admission and are now back to normal . Review of Systems ROS Status of ROS 10 or more systems reviewed and unremark able except as noted in history and below [facility] Medical History (Updated 07/05/25 @ 10:25 by Moses Rivera MD) Hx of thyroid cancer ?Z85.850 - Personal history of malignant neoplasm of thyroid (ICD-10) History of COPD ?Z87.09 - Personal history of other diseases of the respiratory system (ICD- 10) Thyroid activity decreased ?E03.9 - Hypothyroidism, unspecified (ICD-10) COPD (chronic obstructive pulmonary disease) ?J44.9 - Chronic obstructive pulmonary disease, unspecified (ICD-10) Surgical History (Updated 07/05/25 @ 07:27 by Deepti Belle RN) Hx of section ?Z98.891 - History of uterine scar from previous surgery (ICD-10) Hx of thyroidectomy ?Z98.890 - Other specified postprocedural states (ICD-10) ?Z90.89 - Acquired absence of other organs (ICD-10) Family History (Updated 07/05/25 @ 15:36 by Sierra Brower) Father Family history of cancer Mother Family history of cancer Grandmother Family history of hypertension Family history of stroke Social History (Updated 07/05/25 @ 15:37 by Sierra Brower) Within the past year, how often did you have a drink containing alcohol: never Score interpretation: A score less than 3 is consistent with normal alcohol con sumption. Smoking status: Current every day smoker Non-prescribed substance use: denies use Previous occupational history: retired Highest level of school completed/degree received: high school graduate Are you now , , , , never or living with a partner: Little interest or pleasure in doing things: not at all Feeling down, depressed, or hopeless: not at all Gender Identity: female Meds Home Medications and Allergies Home Medications ?Medication ?Instructions ?Recorded ?Confirmed ?Type albuterol sulfate 2.5 mg/3 mL 2.5 mg inhalation Q4H MA N 07/05/25 07/05/25 History (0.083 %) solution for nebulization shortness of breat h or wheezing albuterol sulfate 90 mcg/actuation 2 inh inhalation Q4 H PRN shortness 07/05/25 07/05/25 History aerosol inhaler of breath or wheezing levothyroxine 200 mcg tablet 200 mcg PO DAILY 07/05/25 07/05/25 History Allergies Allergy/AdvReac Type Severity Reaction Status Date / Time Iodinated Contrast Media Allergy Rash Verified 07/05/25 00:33 Exam Narrative Exam Narrative: General: Appears comfortable, in no distress, on oxygen by nasal cannula Neck: No evidence of jugular venous distention Chest: Scattered wheezes, decreased air entry diffusely CVS: S1, S2, regular rate and rhythm, no significant murmurs rubs or gallops Extremities: No significant edema or calf tenderness Constitutional Vital Signs, click to edit/add: Last Vital Signs Temp 98.1 F 07/10/25 11:34 Pulse 86 07/10/25 12:00 Resp 22 H 07/10/25 11:34 BP 130/89 07/10/25 11:34 Pulse Ox 93 L 07/10/25 11:34 O2 Del Method Nasal Cannula 07/10/25 11:34 O2 Flow Rate 3 07/10/25 11:34 Results Labs and Meds Lab results: Cardiac Enzymes 07/10/25 Range/Units 05:09 AST 9 L (15-37) U/L CBC 07/10/25 Range/Units 05:09 WBC 8.6 (4.0-11.0) 10^3/uL RBC 4.77 (4.20-5.40) 10^6/uL Hgb 12.8 (12.0-16.0) g/dL Hct 40.0 (36.0-48.0) % Plt Count 389 (150-450) 10^3/uL Neut # (Auto) 7.0 H (1.4-6.5) 10^3/uL Lymph # (Auto) 0.9 L (1.2-3.8) 10^3/uL [place] # (Auto) 0.6 (0.3-0.8) 10^3/uL Eos # (Auto) 0.0 (0.0-0.7) 10^3/uL Baso # (Auto) 0.0 (0.0-0.1) 10^3/uL Comprehensive Metabolic Panel 07/10/25 Range/Units 05:09 Sodium 137 (136-145) mmol/L Potassium 4.2 (3.5-5.1) mmol/L Chloride 99 (98-107) mmol/L Carbon Dioxide 34.9 H (21.0-32.0) mmol/L BUN 21.0 H (7.0-18.0) mg/dL Creatinine 0.61 (0.55-1.02) mg/dL Glucose 143 H (74-106) mg/dL Calcium 8.9 (8.5-10.1) mg/dL AST 9 L (15-37) U/L ALT 36 (14-59) U/L Alkaline Phosphatase 64 (46-116) U/L Total Protein 6.6 (6.4-8.2) g/dL Albumin 3.4 (3.4-5.0) g/dL Intake and Output 07/09/25 07/10/25 07/10/25 23:59 07:59 15:59 Intake Total 350 / 1550 550 / 1550 Output Total 800 / 3300 1000 / 3300 400 / 400 Balance -450 / -1750 -450 / -1750 -400 / -400 Intake: Oral 350 / 1300 550 / 1300 Output: Urine 800 / 3300 1000 / 3300 400 / 400 Other: # Bowel Movements 1 1 Weight 71.8 kg I personally reviewed the EKG. This shows sinus tachycardia with no significant ST-T wave abnormalities An echocardiogram was performed Conclusion: Normal left ventricular size and wall thickness. Normal left ventricular systolic function without wall motion abnormalities, ejection fraction 66% Normal left ventricular diastolic function Normal right ventricular size and systolic function Mild to moderately elevated right ventricular systolic pressure; RVSP 45 mmHg Mild aortic valve stenosis Trivial aortic insufficiency Imaging and Cardiology Echo: report reviewed ECG results: report reviewed Assessment and Plan Assessment and Plan (1) Acute hypoxic respiratory failure: (2) Acute exacerbation of chronic obstructive pulmonary disease: (3) History of COPD: (4) Hx of thyroid cancer: Plan 1. Reassurance; the patient symptoms appear to be predominantly pulmonary in etiology. 2. Treat underlying pulmonary disorders as you have been 3. Her elevated right ventricular systolic pressure is likely related to underlying pulmonary disease; her leg swelling is likely due to right sided failure/volume overload 4. No further cardiovascular investigations are necessary at this juncture; today continue to be concerned regarding her pulmonary hypertension and/or concomitant underlying diastolic dysfunction, an outpatient right heart catheterization can be pursued 5. She is to follow-up with her primary care physician as an outpatient and if referral to cardiology is needed, we will be happy to see her in our office Thank you for the consultation. Please feel free to call with questions. Aundrea Monsalve MD MA Cardiovascular Medicine
[2025-07-10] MEDS: FAMOTIDINE 20 MG TABLET PO (22:24)
--- NOTE | 2025-07-10 23:36 | PC.NURSE ---
Respiratory attempted to place patient on bipap. Patient was unable to tolerate.
[2025-07-11] VITALS (24 sets, daily range): BP systolic 117–142; BP diastolic 72–89; PULSE 80–110; TEMP 36.4–36.8; O2SAT 90–96
[2025-07-11] MEDS: ALBUTEROL SULFATE 2.5 MG/3 ML VIAL NEB IH (03:23)
[2025-07-11] MEDS: ACETAMINOPHEN 325 MG TABLET 650 MG PO (03:39)
[2025-07-11 05:37] LABS: Hematocrit 39.2 % (36.0-48.0); Hemoglobin 12.5 g/dL (12.0-16.0); Immature Granulocytes Abs Auto 0.03 10^3/uL (0.00-0.03); Immature Granulocytes Pct Auto 0.4 % (0.0-0.5); Lymphocytes Absolute Auto 0.9 10^3/uL (1.2-3.8); Mean Corpuscular HGB Conc 31.9 g/dL (29.9-35.2); Mean Corpuscular Hemoglobin 26.5 pg (26.7-34.0); Mean Corpuscular Volume 83.2 fL (81.0-99.0); Platelet Count 338 10^3/uL (150-450); Red Blood Count 4.71 10^6/uL (4.20-5.40); White Blood Count 8.5 10^3/uL (4.0-11.0)
[2025-07-11 06:00] LABS: Alanine Aminotransferase 33 U/L (14-59); Albumin Globulin Ratio 0.9; Albumin Level 3.1 g/dL (3.4-5.0); Alkaline Phosphatase 59 U/L (46-116); Anion Gap 8.6; Aspartate Amino Transferase 17 U/L (15-37); Blood Urea Nitrogen 25.0 mg/dL (7.0-18.0); Calcium 8.6 mg/dL (8.5-10.1); Carbon Dioxide 34.3 mmol/L (21.0-32.0); Chloride 98 mmol/L (98-107); Estimated GFR (African America >60 (>=60 mL/min/1.73m^2); Estimated GFR (Non-African Ame >60 (>=60 mL/min/1.73m^2); Globulin 3.3 g/dL; Glucose 140 mg/dL (74-106); Magnesium 2.3 mg/dL (1.8-2.4); Potassium 4.9 mmol/L (3.5-5.1); Sodium 136 mmol/L (136-145); Total Protein 6.4 g/dL (6.4-8.2)
[2025-07-11] MEDS: LEVOTHYROXINE SODIUM 100 MCG TABLET 200 MCG PO (06:36)
[2025-07-11] MEDS: METHYLPREDNISOLONE SOD SUCC PF 40 MG/ML VIAL IVP ×3 (06:36→21:16)
[2025-07-11] MEDS: IPRATROPIUM/ALBUTEROL SULFATE 3 ML AMPUL.NEB IH ×3 (08:05→20:07)
[2025-07-11] MEDS: BUDESONIDE 0.5 MG/2 ML AMPULE NEB IH ×2 (08:05→20:07)
[2025-07-11] MEDS: ENOXAPARIN SODIUM 40 MG/0.4 ML SYRINGE SUBQ (08:29)
[2025-07-11] MEDS: SENNOSIDES/DOCUSATE SODIUM 1 TAB TABLET PO (08:30)
[2025-07-11] MEDS: POTASSIUM CHLORIDE 10 MEQ ER TABLET 20 MEQ PO (08:30)
[2025-07-11] MEDS: PANTOPRAZOLE SODIUM 40 MG VIAL IV (08:30)
[2025-07-11] MEDS: TORSEMIDE 20 MG TABLET PO (08:30)
[2025-07-11] MEDS: ALPRAZOLAM 0.5 MG TABLET PO (08:30)
--- NOTE | 2025-07-11 09:50 | CM.NOTE ---
Rounds made with Dr. Webb, discussed plan of care with pt. Pt unable to tolerate BIPAP last evening, refuses sleep study. No discharge today. SW will call to set up home oxygen, pt is aware it will be out of pocket expense. Pt requesting to use [employer], updated SW.
--- NOTE | 2025-07-11 10:45 | P.IMPN_ITS ---
Progress Note: A&P Assessment and Plan (1) Acute hypoxic respiratory failure: (2) Acute exacerbation of chronic obstructive pulmonary disease: (3) History of COPD: (4) Hx of thyroid cancer: Plan Plan Acute hypoxic respiratory failure manifested by tachypnea, respiratory rate 24, using accessory muscles and saturation at 88%. Likely secondary to Acute COPD exacerbation Acute bronchitis Continue patient on albuterol, Atrovent, Solu-Medrol and Zithromax. Follow-up clinically Recommend follow-up with pulmonary. She may need to have the PFTs to determine the significance of her COPD. Stop smoking. Lung cancer screening. I would recommend yearly low-dose radiation CAT scan of the chest to screen for lung cancer to be arranged by PCP and/or chamfering machine operator. Tobacco addiction for 40 years. She is down to 5 cigarettes a day. Counseling and education NicoDerm patch. Lower extremities edema, unknown etiology. BNP is not significantly elevated. I suspect that the patient could have pulm hypertension, right-sided heart failure causing lower extremity edema. Continue patient on diuretics Requested echocardiogram rule out right-sided heart failure or pulmonary hypertension. Pending Requested venous study rule out DVT. Pending Hypothyroidism post thyroidectomy for thyroid cancer Continue home Synthroid Continue to keep TSH suppressed DVT prophylaxis Lovenox subcu 07/07/2025 patient's echo is pending. Will continue patient on IV azithromycin 500 mg every 24 hours. Patient did receive 1 dose of Lasix 40 g IV once yesterday. Will hold off on that as patient does not appear to be fluid overloaded on my exam. She continues to be on DuoNebs, methylprednisolone 40 mg IV every 8 hours. We will continue to monitor her respiratory status today and will decide based on the echo results as well. 07/08/2025 patient is slightly improved compared to yesterday in terms of her work of breathing. Patient does have a fracture involving the lateral asp of the right seventh rib on her CT chest without contrast from yesterday. Along with pleural-based scarring in the right lung base. Emphysematous changes were present. Patient refused to do a CT chest PE and my likelihood for PE is low for now. She continues guanfacine and is getting a stent to 5 L so I will take that as improvement. Her work of breathing is slightly better than yesterday. She is able to secure airway clear. She has mild respiratory distress only. I added Pulmicort yesterday so she is on DuoNeb, Pulmicort as well as on methylprednisolone 40 mg IV every 8 hours. She continues to on appropriate DVT and GI prophylaxis well. She continues to be on IV azithromycin as well. Discussed the plan with her in detail. Answered all questions. Added vest therapy as well as will ask respiratory to begin to hypertonic saline nebulizer to help her come up with the secretions as well 07/09/2025 patient still with creased work of breathing specially when she tried to speak. I will continue her on her DuoNeb, Pulmicort, IV methylprednisone for another day. Also will continue with IV azithromycin for today. I discussed with her the plan. Unfortunately patient will not be covered for her oxygen that she we will definitely need on discharge. I will discuss that with the correctional case records supervisor and social media project manager to help the patient with resources to discharge as safe as possible when the time comes on oxygen to avoid readmissions 07/10/2025 given the patient's symptoms at night I am suspecting sleep apnea, I ordered BiPAP on a setting of 12 IPAP, 5 EPAP, 14 respiratory and 40% FiO2 and will see how the patient does this night. Also consult cardiology for persistent symptoms despite normal echo and other cardiac workup. Patient will need to be and for another 24 hours at least until we optimize her symptoms. Continues to be on IV steroids and IV azithromycin and DuoNeb and Pulmicort. Discussed the plan with her in details. I also added famotidine at night to help with her symptoms if there is any GERD related symptomatology 07/11/2025 patient refused to use BiPAP yesterday. Explained to her that the reason for the BiPAP is to see if she benefits from that when she leaves home. I was very close with the correctional case records supervisor and the patient to help her get the needed oxygen supply at home. Continuing her IV steroid IV is azithromycin DuoNeb and Pulmicort for today and I will discharge her tomorrow with a plan that sort out all her supply. Appreciate cardiology recommendations. Will continue to monitor the patient for another day today hopeful discharge tomorrow. Discussed the plan with her in details. Internal Medicine - PN: Subj Subjective Interval history: Patient continues to do better however still complains of episodes where she feels breathless. She is refused to use BiPAP last night as it made her feel like she is having a panic attack. Continues on the same treatment. Appreciate radiology manage from yesterday Exam Narrative Exam Narrative: pt is awake and alert. oriented to place, time and person, ill-appearing in mild respiratory distress HEENT: [place] conjunctiva and NL buccal mucosa Neck: Supple, no tenderness, no JVD, no lymphadenopathy, no thyromegaly Endocrine: No Thyromegaly. Vascular: No JVD or carotid bruit. Lymphatic: No cervical lymphadenopathy. Chest: Bilateral wheezing or rhonchi, decreased bilateral air entry. She is not able to speak in full sense however mild respiratory distress. She is not tachypneic but does have some increased work of breathing. Not using provider relations coordinator muscles. Not using abdominal muscles for breathing. Saturating 90% on 2 L nasal cannula Heart RRR, no extra sound or murmur. Abd: Soft, no tenderness, no rebound and no rigidity. Increase abd girth therefore clinically I could not exclude the possibility of intra abd mass or organomegaly. LE: No cyanosis or clubbing, no varices, +1 non-pitting edema in both legs Neuro: A A O. Nl speech, comprehension and attention. Nl and symetrical motor and tone examination through out. 07/11/2025 patient appears to be in the same interval respiratory status compared to yesterday. Still with increased work of breathing when she touches to speak. Increased work of breathing that waxes and wanes. Constitutional Vital Signs, click to edit/add: Last Vital Signs Temp 97.9 F 07/11/25 08:00 Pulse 94 H 07/11/25 09:57 Resp 20 07/11/25 08:00 BP 136/89 07/11/25 08:00 Pulse Ox 94 L 07/11/25 08:06 O2 Del Method Nasal Cannula 07/11/25 08:06 O2 Flow Rate 3 07/11/25 08:06 Internal Medicine - PN: Obj Da Labs Labs: Laboratory Results - last 24 hr 07/11/25 05:09 WBC 8.5 RBC 4.71 Hgb 12.5 Hct 39.2 MCV 83.2 MCH 26.5 L MCHC 31.9 RDW 14.6 Plt Count 338 MPV 8.9 L Neut % (Auto) 81.6 H Lymph % (Auto) 11.1 L [place] % (Auto) 6.9 Eos % (Auto) 0.0 L Baso % (Auto) 0.0 L Neut # (Auto) 6.9 H Lymph # (Auto) 0.9 L [place] # (Auto) 0.6 Eos # (Auto) 0.0 Baso # (Auto) 0.0 Abs Immat Gran (auto) 0.03 Imm/Tot Granulo (auto) 0.4 Sodium 136 Potassium 4.9 Chloride 98 Carbon Dioxide 34.3 H Anion Gap 8.6 BUN 25.0 H Creatinine 0.51 L Est GFR ( Amer) >60 Est GFR (Non-Af Amer) >60 BUN/Creatinine Ratio 49.0 Glucose 140 H Calcium 8.6 Magnesium 2.3 Total Bilirubin 0.4 AST 17 ALT 33 Alkaline Phosphatase 59 Total Protein 6.4 Albumin 3.1 L Globulin 3.3 Albumin/Globulin Ratio 0.9
--- NOTE | 2025-07-11 10:57 | SWNOTE1 ---
SW spoke to CM and pt would like to use [employer] for home oxygen. Pt will likely be discharged home tomorrow. Pt has no insurance and will be paying out of pocket for home oxygen. Pt will need walk test completed. SW to get home oxygen set up today, with the plan of discharge tomorrow.
[2025-07-11 12:13] LABS: TSH W/ REFLEX FT4 <0.007 uIU/mL (0.358-3.740)
--- NOTE | 2025-07-11 12:30 | CM.NOTE ---
DME order completed and signed by Dr. Webb, pt will have walk test completed for discharge needs.
--- NOTE | 2025-07-11 14:14 | CM.NOTE ---
Updated Dr. Rivera regarding walk test, pt does not qualify at this time for home oxygen.
--- NOTE | 2025-07-11 15:56 | SWNOTE1 ---
Nursing did complete walk test and pt did not drop below 90%. At this time pt does not qualify for home oxygen.
[2025-07-11] MEDS: TEMAZEPAM 15 MG CAPSULE PO (21:16)
[2025-07-11] MEDS: FAMOTIDINE 20 MG TABLET PO (21:16)
[2025-07-12] VITALS (13 sets, daily range): BP systolic 117–130; BP diastolic 72–83; PULSE 77–106; TEMP 36.5–36.7; O2SAT 90–93
[2025-07-12] MEDS: ALPRAZOLAM 0.5 MG TABLET PO (03:26)
[2025-07-12] MEDS: ALBUTEROL SULFATE 2.5 MG/3 ML VIAL NEB IH (06:20)
[2025-07-12 06:39] LABS: Hematocrit 40.3 % (36.0-48.0); Hemoglobin 13.2 g/dL (12.0-16.0); Immature Granulocytes Abs Auto 0.04 10^3/uL (0.00-0.03); Immature Granulocytes Pct Auto 0.4 % (0.0-0.5); Lymphocytes Absolute Auto 1.3 10^3/uL (1.2-3.8); Mean Corpuscular HGB Conc 32.8 g/dL (29.9-35.2); Mean Corpuscular Hemoglobin 27.2 pg (26.7-34.0); Mean Corpuscular Volume 83.1 fL (81.0-99.0); Platelet Count 362 10^3/uL (150-450); Red Blood Count 4.85 10^6/uL (4.20-5.40); White Blood Count 10.1 10^3/uL (4.0-11.0)
[2025-07-12 06:55] LABS: Alanine Aminotransferase 29 U/L (14-59); Albumin Globulin Ratio 0.9; Albumin Level 3.1 g/dL (3.4-5.0); Alkaline Phosphatase 62 U/L (46-116); Anion Gap 10.1; Aspartate Amino Transferase 13 U/L (15-37); Blood Urea Nitrogen 23.0 mg/dL (7.0-18.0); Calcium 8.6 mg/dL (8.5-10.1); Carbon Dioxide 33.1 mmol/L (21.0-32.0); Chloride 98 mmol/L (98-107); Estimated GFR (African America >60 (>=60 mL/min/1.73m^2); Estimated GFR (Non-African Ame >60 (>=60 mL/min/1.73m^2); Globulin 3.3 g/dL; Glucose 127 mg/dL (74-106); Magnesium 2.3 mg/dL (1.8-2.4); Potassium 4.2 mmol/L (3.5-5.1); Sodium 137 mmol/L (136-145); Total Protein 6.4 g/dL (6.4-8.2)
[2025-07-12] MEDS: LEVOTHYROXINE SODIUM 100 MCG TABLET 200 MCG PO (07:10)
[2025-07-12] MEDS: METHYLPREDNISOLONE SOD SUCC PF 40 MG/ML VIAL IVP ×2 (07:10→14:01)
[2025-07-12] MEDS: TORSEMIDE 20 MG TABLET PO (08:44)
[2025-07-12] MEDS: POTASSIUM CHLORIDE 10 MEQ ER TABLET 20 MEQ PO (08:44)
[2025-07-12] MEDS: ENOXAPARIN SODIUM 40 MG/0.4 ML SYRINGE SUBQ (08:44)
[2025-07-12] MEDS: PANTOPRAZOLE SODIUM 40 MG VIAL IV (08:44)
[2025-07-12] MEDS: IPRATROPIUM/ALBUTEROL SULFATE 3 ML AMPUL.NEB IH ×2 (09:56→14:17)
[2025-07-12] MEDS: BUDESONIDE 0.5 MG/2 ML AMPULE NEB IH (09:56)
--- NOTE | 2025-07-12 10:02 | P.DS_ITS ---
DS: Providers Provider Date of admission: 07/05/25 07:52 Primary care physician: KENZIE WILL Consults: 07/05/25 Consult to Child Care Teacher Routine Reason for consult:: Housing/Group Home Other reason:: BED BUGS 07/08/25 09:29 Occupational Therapy Eval and Treat Routine Reason for consultation: placement Physical Therapy Eval and Treat Routine Reason for consultation: placement 07/10/25 09:17 Consult to Cardiology Routine Reason for consultation: persistent SOB Anticipated date of discharge: 07/12/25 DS: Diagnosis Discharge Diagnosis (1) Acute hypoxic respiratory failure: (2) Acute exacerbation of chronic obstructive pulmonary disease: (3) History of COPD: (4) Hx of thyroid cancer: Plan As above DS: Summary Hospital Course Hospital Course: Mrs. Garza is a 65-year-old female with a known diagnosis of COPD. She came in with a few days history of cough, wheezing and congestion. Moist cough, yellowish. No chest pain or palpitation. No fever or chills. Lower extremity swelling. Patient continues to smoke. She is down to 5 cigarettes a day. She is not on oxygen at home. Patient stated that she has oximetry at home. Saturation was dropping down to 88%. In the emergency room her oxygen saturation was 88% on presentation. Plan Acute hypoxic respiratory failure manifested by tachypnea, respiratory rate 24, using accessory muscles and saturation at 88%. Likely secondary to Acute COPD exacerbation Acute bronchitis Continue patient on albuterol, Atrovent, Solu-Medrol and Zithromax. Follow-up clinically Recommend follow-up with pulmonary. She may need to have the PFTs to determine the significance of her COPD. Stop smoking. Lung cancer screening. I would recommend yearly low-dose radiation CAT scan of the chest to screen for lung cancer to be arranged by PCP and/or high school social studies teacher. Tobacco addiction for 40 years. She is down to 5 cigarettes a day. Counseling and education NicoDerm patch. Lower extremities edema, unknown etiology. BNP is not significantly elevated. I suspect that the patient could have pulm hypertension, right-sided heart failure causing lower extremity edema. Continue patient on diuretics Requested echocardiogram rule out right-sided heart failure or pulmonary hypertension. Pending Requested venous study rule out DVT. Pending Hypothyroidism post thyroidectomy for thyroid cancer Continue home Synthroid Continue to keep TSH suppressed DVT prophylaxis Lovenox subcu 07/07/2025 patient's echo is pending. Will continue patient on IV azithromycin 500 mg every 24 hours. Patient did receive 1 dose of Lasix 40 g IV once yesterday. Will hold off on that as patient does not appear to be fluid overloaded on my exam. She continues to be on DuoNebs, methylprednisolone 40 mg IV every 8 hours. We will continue to monitor her respiratory status today and will decide based on the echo results as well. 07/08/2025 patient is slightly improved compared to yesterday in terms of her work of breathing. Patient does have a fracture involving the lateral asp of the right seventh rib on her CT chest without contrast from yesterday. Along with pleural-based scarring in the right lung base. Emphysematous changes were present. Patient refused to do a CT chest PE and my likelihood for PE is low for now. She continues guanfacine and is getting a stent to 5 L so I will take that as improvement. Her work of breathing is slightly better than yesterday. She is able to secure airway clear. She has mild respiratory distress only. I added Pulmicort yesterday so she is on DuoNeb, Pulmicort as well as on methylprednisolone 40 mg IV every 8 hours. She continues to on appropriate DVT and GI prophylaxis well. She continues to be on IV azithromycin as well. Discussed the plan with her in detail. Answered all questions. Added vest therapy as well as will ask respiratory to begin to hypertonic saline nebulizer to help her come up with the secretions as well 07/09/2025 patient still with creased work of breathing specially when she tried to speak. I will continue her on her DuoNeb, Pulmicort, IV methylprednisone for another day. Also will continue with IV azithromycin for today. I discussed with her the plan. Unfortunately patient will not be covered for her oxygen that she we will definitely need on discharge. I will discuss that with the welfare case worker and social sciences department chair to help the patient with resources to discharge as safe as possible when the time comes on oxygen to avoid readmissions 07/10/2025 given the patient's symptoms at night I am suspecting sleep apnea, I ordered BiPAP on a setting of 12 IPAP, 5 EPAP, 14 respiratory and 40% FiO2 and will see how the patient does this night. Also consult cardiology for persistent symptoms despite normal echo and other cardiac workup. Patient will need to be and for another 24 hours at least until we optimize her symptoms. Continues to be on IV steroids and IV azithromycin and DuoNeb and Pulmicort. Discussed the plan with her in details. I also added famotidine at night to help with her symptoms if there is any GERD related symptomatology 07/11/2025 patient refused to use BiPAP yesterday. Explained to her that the reason for the BiPAP is to see if she benefits from that when she leaves home. I was very close with the welfare case worker and the patient to help her get the needed oxygen supply at home. Continuing her IV steroid IV is azithromycin DuoNeb and Pulmicort for today and I will discharge her tomorrow with a plan that sort out all her supply. Appreciate cardiology recommendations. Will continue to monitor the patient for another day today hopeful discharge tomorrow. Discussed the plan with her in details. 07/12/2025 patient is feeling better today. She passed her oxygen test with 90% on room air. She states that she is ready to go home today. I explained to her that she will need sleep study to be done with her PCP/high school social studies teacher to be arranged. I will send her on p.o. prednisone taper for another 6 days. Patient being discharged today. Patient again extensively counseled on smoking cessation Status at Discharge Overall status at discharge: patient is back to baseline Time Spent with Patient Time attestation: Total time spent providing and/or coordinating discharge services: Exam Constitutional Vital Signs, click to edit/add: Last Vital Signs Temp 98.0 F 07/12/25 07:11 Pulse 86 07/12/25 09:56 Resp 18 07/12/25 07:11 BP 117/72 07/12/25 07:11 Pulse Ox 90 L 07/12/25 09:56 O2 Del Method Room Air 07/12/25 09:56 O2 Flow Rate 1 07/12/25 03:26 DS: Data Data Completed and Pending Labs on day of discharge: Labs from last 24 hours 07/12/25 07/11/25 05:59 05:09 WBC 10.1 RBC 4.85 Hgb 13.2 Hct 40.3 MCV 83.1 MCH 27.2 MCHC 32.8 RDW 14.7 Plt Count 362 MPV 9.1 L Neut % (Auto) 78.5 H Lymph % (Auto) 13.2 L [place] % (Auto) 7.9 Eos % (Auto) 0.0 L Baso % (Auto) 0.0 L Neut # (Auto) 7.9 H Lymph # (Auto) 1.3 [place] # (Auto) 0.8 Eos # (Auto) 0.0 Baso # (Auto) 0.0 Abs Immat Gran (auto) 0.04 H Imm/Tot Granulo (auto) 0.4 Sodium 137 Potassium 4.2 Chloride 98 Carbon Dioxide 33.1 H Anion Gap 10.1 BUN 23.0 H Creatinine 0.71 Est GFR ( Amer) >60 Est GFR (Non-Af Amer) >60 BUN/Creatinine Ratio 32.4 Glucose 127 H Calcium 8.6 Magnesium 2.3 Total Bilirubin 0.3 AST 13 L ALT 29 Alkaline Phosphatase 62 Total Protein 6.4 Albumin 3.1 L Globulin 3.3 Albumin/Globulin Ratio 0.9 Free T4 1.75 H TSH & Free T4 Interp <0.007 L Discharge Plan Discharge Disposition: Home, Self-Care Discharge Medications: New ipratropium-albuterol 0.5 mg-3 mg(2.5 mg base)/3 mL Solution For Nebulization 3 ml inhalation RTTID 20 Days Qty: 180 0RF famotidine 20 mg Tablet 20 mg PO QHS 30 Days Qty: 30 0RF prednisone 20 mg tablet 40 mg PO DAILY 4 Days Qty: 8 0RF budesonide-formoterol [Symbicort] 80-4.5 mcg/actuation HFA aerosol inhaler 1 inh inhalation BID Qty: 10.2 0RF Continued albuterol sulfate 2.5 mg /3 mL (0.083 %) solution for nebulization 2.5 mg inhalation Q4H PRN (Reason: shortness of breath or wheezing) albuterol sulfate 90 mcg/actuation HFA aerosol inhaler 2 inh INHALATION Q4H PRN (Reason: shortness of breath or wheezing) levothyroxine 200 mcg tablet 200 mcg PO DAILY Print Language: Ukrainian Forms: Portal Instructions Follow Up Appointments: Dr. Светлана Jacobo. 07/17 @ 1:40pm [phone] * request referral to [facility] Pulmonology at [facility].
[2025-07-12] MEDS: CALCIUM CARBONATE 500 MG (200MG ELEMENTAL) TAB CHEW PO (13:56)
== END 2025-07-12 15:23 | disposition home or self-care (01) | DRG 190 ==
LOC: ER 05:34 → MS 06:14
PROVIDERS: Admitting Provider Internal Medicine; Emergency Provider Internal Medicine; PCP Family Medicine; Visit Provider Student in an Organized Health Care Education/Training Program
DX: J44.1 Chronic obstructive pulmonary disease with (acute) exacerbation (principal); J96.01 Acute respiratory failure with hypoxia; J20.9 Acute bronchitis, unspecified; J44.0 Chronic obstructive pulmonary disease with (acute) lower respiratory infection; I50.810 Right heart failure, unspecified; I27.20 Pulmonary hypertension, unspecified; I35.0 Nonrheumatic aortic (valve) stenosis; G47.30 Sleep apnea, unspecified; E89.0 Postprocedural hypothyroidism; F17.210 Nicotine dependence, cigarettes, uncomplicated; Z53.29 Procedure and treatment not carried out because of patient's decision for other reasons; Z85.850 Personal history of malignant neoplasm of thyroid; Z79.890 Hormone replacement therapy
CPT/HCPCS: 36415; 71045; 71250; 80053; 83735; 83880; 84439; 84443; 84484; 85025; 85378; 87420; 87804; 87811; 93005; 93306; 93970; 94640; 94667; 94668; 94761; 96374; 97162; 97165; 99285; 99406; J0456; J1650; J1938; J2919